=== PATIENT | female | born 1985 | race Caucasian/White ===

== ENCOUNTER → 2017-03-05 | Outpatient (CLI) | payer OTHER ==
--- NOTE | 2017-03-05 14:56 | US ---
EXAMINATION TYPE: US transvaginal DATE OF EXAM: 03/05/2017 COMPARISON: NONE CLINICAL HISTORY: Z97.5 IUD placement. Patient stated that IUD string not located on pelvic exam tovin[place] de [place] torre. TECHNIQUE: Transvaginal (TV) Date of LMP: 02/10/2017 EXAM MEASUREMENTS: Uterus: 8.8 x 5.4 x 4.6 cm Endometrial Stripe: 1.2 cm Right Ovary: 3.3 x 2.2 x 2.4 cm Left Ovary: 3.2 x 3.2 x 2.4 cm 1. Uterus: Anteverted; multiple Nabothian Cysts in CX with largest = 0.4 x 0.4 x 0.2cm 2. Endometrium: No IUD is seen in endometrium, myometrium, HOA, cervical canal or vaginal canal; end ometrial thickness is wnl for Day 24LMP 3. Right Ovary: multifollicular 4. Left Ovary: multifollicular with largest as involuting cyst = 1.7 x 1.6 x 1.5cm 5. Bilateral Adnexa: wnl 6. Posterior cul-de-sac: wnl Findings were discussed with the ordering physician by the merchandise worker on 02/25/2017. IMPRESSION: The patient's questioned malpositioned intrauterine device is not sonographically present . Pelvic radiograph could be performed to evaluate for any portion remaining within the pelvic cavity .
--- NOTE | 2017-03-05 15:47 | XR ---
EXAMINATION TYPE: XR abdomen 1V DATE OF EXAM: 03/05/2017 CLINICAL HISTORY: IUD in uncertain location. TECHNIQUE: Single supine image of the abdomen is obtained. COMPARISON: Pelvic ultrasound of the same date FINDINGS: No radiopaque intrauterine device is seen within the abdomen or pelvis. Scattered gas is s een in non-distended small bowel loops. Gas and fecal material is seen in non-distended colon. Ther e is no visceromegaly, pneumoperitoneum, or abnormal calcification appreciated. Numerous phleboliths are noted within the low pelvis. The lung bases are clear and the osseous structures are intact. IMPRESSION: 1. No radiographic evidence of intrauterine device. Intrauterine device is thought to have been expel led from the patient. 2. Nonobstructive bowel gas pattern.
== END | disposition home or self-care (01) ==
LOC: RADUSWWP 14:12
PROVIDERS: ATTEND Obstetrics & Gynecology
DX: T83.32XA Displacement of intrauterine contraceptive device, initial encounter (principal); R14.3 Flatulence
CPT/HCPCS: 74000; 76830

== ENCOUNTER → 2018-03-19 | Outpatient (CLI) | payer OTHER ==
--- NOTE | 2018-03-19 16:26 | CT ---
EXAMINATION TYPE: CT abdomen pelvis wo con DATE OF EXAM: 03/19/2018 HISTORY: abdominal pain not further specified CT DLP: 1077 mGycm. Automated Exposure Control for Dose Reduction was Utilized. TECHNIQUE: CT scan of the abdomen and pelvis is performed without oral or IV contrast. COMPARISON: NONE FINDINGS: Within the limitations of a non-contrast study, the following observations are made. LUNG BASES: No significant abnormality is appreciated. LIVER/GB: Dependent density in gallbladder could reflect small stones and/or gallbladder sludge. No s urrounding inflammatory changes seen. PANCREAS: No significant abnormality is seen. SPLEEN: No significant abnormality is seen. ADRENALS: No significant abnormality is seen. KIDNEYS: There is 7 mm calculus in lower pole calyx left kidney coronal image 60. No right-sided demetrius l calculi are seen. No hydronephrosis or obstructing ureter calculi are clearly seen bilaterally. No intraluminal calculus and bladder is present. BOWEL: No significant small or large bowel dilatation. Small bowel is slightly more prominent but not greater than 3 cm dilated in the right mid to lower abdomen. Cecum is wandering into the right upper to midabdomen. There is normal-appearing appendix extending to left of midline coronal image 30. GENITAL ORGANS: Anteverted uterus is seen. Both ovaries are seen on axial image 71 without suspicious enlargement. Some scattered pelvic phleboliths are present. LYMPH NODES: No greater than 1cm abdominal or pelvic lymph nodes are appreciated. OSSEOUS STRUCTURES: No significant abnormality is seen. OTHER: No significant additional abnormality is seen. IMPRESSION: No acute finding identified. Incidental findings as noted above.
[2018-03-19 16:30] LABS: Basophils % (A) 0 %; Eosinophils # (A) 0.1 k/uL (0-0.7); Eosinophils % (A) 1 %; HGB 12.5 gm/dL (11.4-16.0); Lymphocytes # (A) 1.3 k/uL (1.0-4.8); Lymphocytes % (A) 16 %; MCH 29.4 pg (25.0-35.0); MCHC 32.1 g/dL (31.0-37.0); MCV 91.5 fL (80.0-100.0); Mean Platelet Volume 6.9; Monocytes # (A) 0.6 k/uL (0-1.0); Monocytes % (A) 7 %; Neutrophils % (A) 73 %; Platelet Count 234 k/uL (150-450); RBC 4.26 m/uL (3.80-5.40); RDW 13.1 % (11.5-15.5); WBC 8.3 k/uL (3.8-10.6)
[2018-03-19 16:39] LABS: ALT 129 U/L (9-52); AST 103 U/L (14-36); Alkaline Phosphatase 54 U/L (38-126); Amylase 32 U/L (30-110); Anion Gap 10 mmol/L; Blood Urea Nitrogen 12 mg/dL (7-17); Calcium 8.8 mg/dL (8.4-10.2); Carbon Dioxide 25 mmol/L (22-30); Chloride 103 mmol/L (98-107); Glucose 86 mg/dL (74-99); Lipase 52 U/L (23-300); Potassium 3.8 mmol/L (3.5-5.1); Sodium 138 mmol/L (137-145); Total Bilirubin 0.3 mg/dL (0.2-1.3)
[2018-03-19 16:55] LABS: T4, Free (Free Thyroxine) 0.86 ng/dL (0.78-2.19)
[2018-03-20 04:57] LABS: Hepatitis A Antibody IgM Non-Reactive (Non-Reactive); Hepatitis B Core IgM Non-Reactive (Non-Reactive)
== END | disposition home or self-care (01) ==
LOC: RADCTMAIN 16:00
PROVIDERS: ATTEND Nurse Practitioner Adult Health
DX: R10.9 Unspecified abdominal pain (principal)
CPT/HCPCS: 74176; 80053; 80074; 82150; 83690; 84439; 84443; 85025

== ENCOUNTER → 2018-06-26 | Outpatient (CLI) | payer OTHER ==
[2018-06-26 14:44] LABS: HCT 38.6 % (34.0-46.0); HGB 12.4 gm/dL (11.4-16.0); MCH 29.4 pg (25.0-35.0); MCHC 32.2 g/dL (31.0-37.0); MCV 91.2 fL (80.0-100.0); Mean Platelet Volume 6.9; Platelet Count 294 k/uL (150-450); RBC 4.23 m/uL (3.80-5.40); RDW 13.3 % (11.5-15.5); WBC 11.2 k/uL (3.8-10.6)
--- NOTE | 2018-06-26 14:46 | US ---
EXAMINATION TYPE: Transabdominal DATE OF EXAM: 10/09/17 COMPARISON: NONE CLINICAL HISTORY: Z36 Confirm dates. EXAM PERFORMED: Transabdominal (TA) EXAM MEASUREMENTS: GESTATIONAL AGE / DATING Physician Established: Not yet established Dates by LMP: (7 weeks/4 days) EDC: 02/08/2019 Dates by First Scan: No previous this is first scan Dates by Current Scan for: (6 weeks/6 days) EDC: 02/13/2019 MATERNAL ANATOMY Uterus: 12.5 x 4.6 x 4.9 cm Right Ovary: 2.5 x 1.7 x 1.9 cm Left Ovary: 3.5 x 2.1 x 2.0 cm Post CDS / Adnexa: wnl Presence of free fluid: No Presence of corpus luteal cyst: No Presence of subchorionic bleed: No GESTATION / SURVEY CRL: 0.9 cm (6 weeks/6 days) Yolk Sac (normal less than 6mm): 4 mm Heart Rate: 144 bpm Rhythm: Normal IUP: Viable IUP Date of LMP: 05/04/2018 Beta HcG (if available): Not available at this time Single live intrauterine gestation is confirmed as gestational sac, yolk sac, and pole are pres ent. No free fluid is seen in pelvic cul-de-sac. Both ovaries are seen. No suspicious extraovarian adnexal masses are present. IMPRESSION: Single live intrauterine gestation is seen, mean crown-rump length is 0.9 cm corresponding to 6 week 6 day old fetus.
[2018-06-26 15:10] LABS: Glucose 95 mg/dL (74-99)
[2018-06-26 21:51] LABS: HIV 1 AB Non-Reactive (Non-Reactive); HIV AB P24 Non-Reactive (Non-Reactive); HIV P24 AG Non-Reactive (Non-Reactive)
== END | disposition home or self-care (01) ==
LOC: RADUSWWP 13:38
PROVIDERS: ATTEND Obstetrics & Gynecology
DX: Z34.81 Encounter for supervision of other normal pregnancy, first trimester (principal); Z3A.01 Less than 8 weeks gestation of pregnancy
CPT/HCPCS: 36415; 76801; 82565; 82947; 85027; 86762; 86780; 86850; 86900; 86901; 87340; 87390

== ENCOUNTER 2019-02-02 12:53 | Inpatient (IN) | payer OTHER ==
[2019-02-02 14:31] LABS: Basophils % (A) 0 %; Eosinophils # (A) 0.1 k/uL (0-0.7); Eosinophils % (A) 1 %; HCT 35.8 % (34.0-46.0); HGB 12.1 gm/dL (11.4-16.0); Lymphocytes # (A) 1.6 k/uL (1.0-4.8); Lymphocytes % (A) 12 %; MCH 30.6 pg (25.0-35.0); MCHC 33.7 g/dL (31.0-37.0); MCV 90.6 fL (80.0-100.0); Mean Platelet Volume 8.1; Monocytes # (A) 0.5 k/uL (0-1.0); Monocytes % (A) 4 %; Neutrophils # (A) 11.2 k/uL (1.3-7.7); Neutrophils % (A) 82 %; Platelet Count 205 k/uL (150-450); RBC 3.95 m/uL (3.80-5.40); RDW 14.4 % (11.5-15.5); WBC 13.6 k/uL (3.8-10.6)
[2019-02-02 14:36] LABS: ALT 11 U/L (9-52); AST 15 U/L (14-36); African American GFR (CKD) >90 (>60 ml/min/1.73 sqM); Blood Urea Nitrogen 13 mg/dL (7-17); LDH 312 U/L (313-618); Non-African American GFR(CKD) >90 (>60 ml/min/1.73 sqM); Uric Acid 5.8 mg/dL (3.7-7.4)
[2019-02-02 14:37] LABS: Amorphous Sediment,Urine Occasional /hpf; Appearance,Urine Turbid (Clear); Bacteria,Urine Occasional /hpf; Bilirubin,Urine Negative (Negative); Blood,Urine Large (Negative); Color,Urine Yellow; Glucose,Urine (UA) Negative (Negative); Ketones,Urine Negative (Negative); Leukocyte Esterase,Urine Large (Negative); Mucus,Urine Many /hpf; Nitrite,Urine Negative (Negative); PH, Urine 5.5 (5.0-8.0); Protein,Urine 1+ (Negative); RBC,Urine 36 /hpf (0-5); Specific Gravity,Urine 1.021 (1.001-1.035); Squamous Epithelial Cell,Urine 99 /hpf (0-4); Urobilinogen,Urine <2.0 mg/dL (<2.0); WBC,Urine 41 /hpf (0-5)
[2019-02-02] MEDS ORDERED: ROPIVACAINE 5MG/ML 20ML VIAL ONE (15:05)
[2019-02-02] MEDS ORDERED: fentaNYL (PF) 50 MCG/ML 5 ML AMP ONE (15:05)
[2019-02-02] MEDS ORDERED: SODIUM CHLORIDE 0.9% 100 ML BAG ONE (15:05)
--- NOTE | 2019-02-02 16:18 | P.HPOB ---
History of Present Illness H&P Date: 02/02/19 Chief Complaint: Intrauterine at 39 weeks: Gestational hypertension Libia is a 34-year-old at 39 weeks gestation arrives to labor and delivery with complaints of cramping. It was noted that she had elevations in her blood pressure 140s over 90s on multiple checks. Preeclamptic labs were drawn and all were normal. She does have a history of gestational hypertension with her need to be seen on at least 2 prior occasions with labs drawn for preeclampsia were all normal at that time. She and I did sit and discussed with the rest for family decision on whether not we are going to start induction this evening or if we would just started in the morning since she has no signs or symptoms of preeclampsia and again normal labs. She is decided that she would rather wait until morning since she's not delivering in the middle the night and that hopefully she can get some rest tonight. We'll keep her tonight and monitored her and use serial blood pressures through the evening slit if there is a significant change we can adjust our plans and treat blood pressure accordingly and start an induction if needed. Risks and benefits were discussed with the patient in detail and all questions were answered for her prior to admission. We'll notify Dr. Lebron of her admission today should he can do the induction in the morning. She is currently dilated to once and 60% effaced and -2 station and there is a category 1 tracing noted. course has been, complicated by previous gestational hypertension as well as kidney stones which were actually diagnosed prepregnancy but treatment had been deferred until after delivery. She also relates that she does have a yeast infection starting, once delivered we'll be able to treat aggressively with either Terazol or Diflucan. Otherwise she has no other medical problems or concerns that she relates. Past surgical history none: ALLERGIES none: Social history is unremarkable. Family history is nonicteric. Assessment intrauterine at term. Plan induction in a.m. Past Medical History Past Medical History: No Reported History History of Any Multi-Drug Resistant Organisms: None Reported Past Surgical History: No Surgical Hx Reported Past Anesthesia/Blood Transfusion Reactions: No Reported Reaction Smoking Status: Never smoker - Past Family History Mother Family Medical History: Hypertension Father Family Medical History: Hypertension Medications and Allergies Home Medications Medication Instructions Recorded Confirmed Type Yld-Ahnw-Lrsju Acid 1 tab PO DAILY 07/14/14 02/02/19 History [-U Capsule] Allergies Allergy/AdvReac Type Severity Reaction Status Date / Time No Known Allergies Allergy Verified 07/14/14 01:58 Exam Osteopathic Statement: *. No significant issues noted on an osteopathic struc tural exam other than those noted in the History and Physical/Consult. Vital Signs Temp Pulse Resp BP Pulse Ox 02/02/19 13:32 98.1 F 92 18 145/95 98 Intake and Output 02/02/19 02/02/19 02/02/19 06:59 14:59 22:59 Other: Weight 111.316 kg - OBG Physical Exam Breast: both: normal (no masses) Abdomen: bowel sounds normal, no diffuse tenderness, no bruit present, no guarding noted, no hepatomegaly, no splenomegaly, no mass Vulva: both: normal Vagina: normal moisture, no discharge Cervix: no lesion, no discharge Uterus: normal size, normal contour Adnexa: both: normal Anus/Rectum: normal perianal skin, no rectal mass, no hemorrhoids, heme negative Results Result Diagrams: 02/02/19 14:16 02/02/19 14:16 Abnormal Lab Results - Last 24 Hours (Table) 02/02/19 02/02/19 02/02/19 Range/Units 14:05 14:05 14:16 WBC (3.8-10.6) k/uL Neutrophils # (1.3-7.7) k/uL Lactate Dehydrogenase 312 L (313-618) U/L Urine Appearance Turbid H (Clear) Urine Protein 1+ H (Negative) Urine Blood Large H (Negative) Ur Leukocyte Esterase Large H (Negative) Urine RBC 36 H (0-5) /hpf Urine WBC 41 H (0-5) /hpf Ur Squamous Epith Cells 99 H (0-4) /hpf Amorphous Sediment Occasional H (None) /hpf Urine Bacteria Occasional H (None) /hpf Urine Mucus Many H (None) /hpf U Random Total Protein 24 H (<12) mg/dL 02/02/19 Range/Units 14:16 WBC 13.6 H (3.8-10.6) k/uL Neutrophils # 11.2 H (1.3-7.7) k/uL Lactate Dehydrogenase (313-618) U/L Urine Appearance (Clear) Urine Protein (Negative) Urine Blood (Negative) Ur Leukocyte Esterase (Negative) Urine RBC (0-5) /hpf Urine WBC (0-5) /hpf Ur Squamous Epith Cells (0-4) /hpf Amorphous Sediment (None) /hpf Urine Bacteria (None) /hpf Urine Mucus (None) /hpf U Random Total Protein (<12) mg/dL
[2019-02-02 16:29] VITALS: BMI 38.3
[2019-02-02] MEDS ORDERED: ACETAMINOPHEN TAB 325 MG TAB PO PRN (19:02)
[2019-02-03] MEDS ORDERED: CARBOPROST TROMETHAMINE 250 MCG/ML 1 ML AMP IM PRN (05:33)
[2019-02-03] MEDS ORDERED: TERBUTALINE 1 MG/ML VIAL SQ PRN (05:33)
[2019-02-03] MEDS ORDERED: LIDOCAINE 0.5% (PF) 5 MG/ML (50 ML SDV) SQ PRN (05:33)
[2019-02-03] MEDS ORDERED: OXYTOCIN 10 UNIT/ML 1 ML VIAL IM PRN (05:33)
[2019-02-03] MEDS ORDERED: METHYLERGONOVINE 0.2 MG/ML 1 ML AMP IM PRN (05:33)
[2019-02-03] MEDS ORDERED: OXYTOCIN 30 UNITS/500 ML NS 30 UNIT in SALINE 1 500ML.BAG IV SCH (05:45)
[2019-02-03] MEDS: LACTATED RINGERS 1,000 ML IV SCH ×3 (05:51→22:24)
[2019-02-03 06:03] LABS: Basophils % (A) 0 %; Eosinophils # (A) 0.3 k/uL (0-0.7); Eosinophils % (A) 2 %; HCT 36.7 % (34.0-46.0); HGB 12.5 gm/dL (11.4-16.0); Lymphocytes # (A) 2.6 k/uL (1.0-4.8); Lymphocytes % (A) 20 %; MCH 30.8 pg (25.0-35.0); MCHC 34.1 g/dL (31.0-37.0); MCV 90.5 fL (80.0-100.0); Mean Platelet Volume 8.6; Monocytes # (A) 0.4 k/uL (0-1.0); Monocytes % (A) 3 %; Neutrophils # (A) 9.4 k/uL (1.3-7.7); Neutrophils % (A) 73 %; Platelet Count 216 k/uL (150-450); RBC 4.05 m/uL (3.80-5.40); RDW 14.4 % (11.5-15.5); WBC 12.9 k/uL (3.8-10.6)
[2019-02-03] MEDS: BUTORPHANOL 1 MG/ML 1 ML VIAL IV PRN ×2 (10:16→12:50)
--- NOTE | 2019-02-03 21:51 | P.PROBDLV ---
Vaginal Delivery Note - . Vaginal Delivery Note: 33-year-old presented at 39 weeks and 1 day for induction of labor due to gestational hypertension. Her cervix was 1 cm dilated, 50% effaced, and -3 station. She was admitted by Dr. Don and induction was started by Dr. Harrison. Amniotomy was performed at 5:56 AM clear fluid noted. Pitocin was also started. When she was uncomfortable she did get an epidural. Her cervix was completely dilated around 2130. She pushed, delivered a viable female over intact perineum under epidural anesthesia at 2134. Head delivered OA, anterior shoulder delivered gentle downward guidance followed by posterior shoulder and rest of body. Nose and mouth bulb suctioned, cord clamped and cut, infant placed on mother's abdomen. Apgars 8, 9, weight 8 lbs. 8 oz. Placenta delivered spontaneous, intact with three-vessel cord. Vagina, cervix, and perineum were inspected. First-degree midline laceration was repaired with 3-0 Vicryl. The left labial Laceration was repaired with 3-0 Vicryl. Estimated blood loss was 200 ml. Mother and baby in stable condition.
[2019-02-03] MEDS ORDERED: OXYTOCIN 20 UNITS/1000 ML NS 1,000 ML IV SCH (21:57)
[2019-02-03] MEDS ORDERED: ZOLPIDEM 5 MG TAB PO PRN (21:57)
[2019-02-03] MEDS ORDERED: BISACODYL 10 MG SUPP RECTAL PRN (21:57)
[2019-02-03] MEDS ORDERED: HYDROCORTISONE 2.5% RECTAL CREAM 30 GM TUBE RECTAL PRN (21:57)
[2019-02-03] MEDS ORDERED: SIMETHICONE 80 MG CHEWABLE PO PRN (21:57)
[2019-02-03] MEDS ORDERED: diphenhydrAMINE 50 MG/ML 1 ML VIAL IVP PRN (21:57)
[2019-02-03] MEDS ORDERED: ACETAMINOPHEN TAB 325 MG TAB PO PRN (21:57)
[2019-02-03] MEDS ORDERED: LANOLIN CREAM 5 GM TUBE TOPICAL PRN (21:57)
[2019-02-03] MEDS ORDERED: WITCH HAZEL 1 EACH MED..PAD TOPICAL PRN (21:57)
[2019-02-03] MEDS ORDERED: diphenhydrAMINE 25 MG CAP PO PRN (21:57)
[2019-02-03] MEDS ORDERED: BENZOCAINE/MENTHOL SPRAY 1 GM/SPRAY AEROSOL TOPICAL PRN (21:57)
[2019-02-03] MEDS: SENNOSIDES-DOCUSATE SODIUM 1 EACH TAB PO SCH (22:23)
[2019-02-04] MEDS: IBUPROFEN 600 MG TAB PO PRN ×3 (01:55→21:52)
[2019-02-04 04:15] VITALS: RESP 16
--- NOTE | 2019-02-04 06:10 | P.PNOBGVD ---
Subjective - Subjective Patient reports: Reports appetite normal, Reports voiding normally, Reports pain well controlled, Reports ambulating normally : doing well Objective - Latest Vital Signs Latest vital signs: Vital Signs Temp Pulse Resp BP Pulse Ox 02/04/19 04:00 97.4 F L 90 16 113/70 97 02/03/19 23:45 98.4 F 96 15 132/73 02/03/19 23:15 98.5 F 96 16 127/69 02/03/19 22:45 98.3 F 97 16 126/74 02/03/19 22:30 98.7 F 95 16 122/70 02/03/19 22:15 93 16 126/72 02/03/19 22:00 97.8 F 99 16 126/68 02/03/19 21:45 108 H 16 142/71 Intake and Output 02/03/19 02/03/19 02/04/19 14:59 22:59 06:59 Output Total 450 Balance -450 Output: Urine 450 Other: # Voids 1 1 1 - Exam Lungs: bilateral: normal Chest: Normal S1, Normal S2 Extremities: Present: normal Abdomen: Present: normal appearance, soft Uterus: Present: normal, firm Assessment and Plan Assessment: day #1. Patient is resting without complaints. Blood pressures are fine. Uterus is firm nontender and she is having normal lochia. My impression this is a normal course. Plan is to continue routine care discharge home most likely tomorrow. (1) Normal vaginal delivery Current Visit: Yes Status: Acute Code(s): O80 - ENCOUNTER FOR FULL-TERM UNCOMPLICATED DELIVERY SNOMED Code(s): 47383360
[2019-02-04] MEDS: SENNOSIDES-DOCUSATE SODIUM 1 EACH TAB PO SCH ×2 (07:55→19:23)
[2019-02-05 00:43] VITALS: TEMP 98
--- NOTE | 2019-02-05 06:06 | P.PNOBGVD ---
Subjective - Subjective Patient reports: Reports appetite normal, Reports voiding normally, Reports pain well controlled, Reports ambulating normally : doing well Objective - Latest Vital Signs Latest vital signs: Vital Signs Temp Pulse Resp BP 02/05/19 00:00 98.0 F 84 16 124/84 02/04/19 16:00 97.6 F 88 16 103/67 02/04/19 08:00 97.9 F 79 16 123/86 Intake and Output 02/04/19 02/04/19 02/05/19 14:59 22:59 06:59 Intake Total 100 Balance 100 Intake: Oral 100 Other: # Voids 1 1 1 - Exam Lungs: bilateral: normal Chest: Normal S1, Normal S2 Extremities: Present: normal Abdomen: Present: normal appearance, soft Uterus: Present: normal, firm Assessment and Plan Assessment: day #2. Patient is resting without complaints. Vital signs are stable she's afebrile. Uterus is firm nontender she's having normal lochia. Impression is a normal course. Plan is to continue routine care discharge home later today. (1) Normal vaginal delivery Current Visit: Yes Status: Acute Code(s): O80 - ENCOUNTER FOR FULL-TERM UNCOMPLICATED DELIVERY SNOMED Code(s): 02459437
--- NOTE | 2019-02-05 06:13 | P.DS ---
Providers Date of admission: 02/02/19 16:10 Expected date of discharge: 02/05/19 Attending physician: Misael Lebron Primary care physician: Stated None - Discharge Diagnosis(es) (1) Normal vaginal delivery Current Visit: Yes Status: Acute Hospital Course: Please see dictated H&P for intimate details of this patient's admission. Brief summary is a pleasant 33-year-old 3 para 1 female estimated gestational age 39 weeks who presented to labor and delivery and was found to have gestational hypertension. Patient's subsequent have induction of labor and normal vaginal delivery viable female . Please see dictated delivery note. On day #2 patient's felt be stable for discharge home follow up with me in 6 weeks. Procedures: Induction of labor and normal vaginal delivery Patient Condition at Discharge: Good Plan - Discharge Summary New Discharge Prescriptions: New Ibuprofen [Motrin] 600 mg PO Q6HR PRN #40 tab PRN Reason: Mild Pain Or Fever >= 100.5 No Action Gsb-Iuof-Iebsl Acid [-U Capsule] 1 tab PO DAILY Discharge Medication List Jyp-Dvls-Qmkwz Acid [-U Capsule] 1 tab PO DAILY 07/14/14 [History] Ibuprofen [Motrin] 600 mg PO Q6HR PRN #40 tab 02/05/19 [Rx] Follow up Appointment(s)/Referral(s): Misael Lebron MD [STAFF PHYSICIAN] - 03/18/19 10:30 am Patient Instructions/Handouts: Vaginal Delivery (DC) Activity/Diet/Wound Care/Special Instructions: No intercourse or anything per vagina for 6 weeks. Please call if any fever, chills, excessive vaginal bleeding, and/or abdominal pain. Discharge Disposition: HOME SELF-CARE
[2019-02-05 08:54] VITALS: BP 124/74; PULSE 89
[2019-02-05] MEDS: SENNOSIDES-DOCUSATE SODIUM 1 EACH TAB PO SCH (08:54)
[2019-02-05] MEDS: IBUPROFEN 600 MG TAB PO PRN (08:55)
== END 2019-02-05 11:00 | disposition home or self-care (01) | DRG 807 ==
LOC: FBPOP 12:53 → 4FBP 16:10 → UNDODISIN 02-04 11:03
PROVIDERS: ADMIT Obstetrics & Gynecology; ATTEND Obstetrics & Gynecology
PROC: 00HU33Z Insertion of Infusion Device into Spinal Canal, Percutaneous Approach (ICD-10-PCS; principal; 2019-02-02)
PROC: 10E0XZZ Delivery of Products of Conception, External Approach (ICD-10-PCS; principal; 2019-02-02)
PROC: 3E033VJ Introduction of Other Hormone into Peripheral Vein, Percutaneous Approach (ICD-10-PCS; principal; 2019-02-02)
PROC: 10907ZC Drainage of Amniotic Fluid, Therapeutic from Products of Conception, Via Natural or Artificial Opening (ICD-10-PCS; principal; 2019-02-02)
PROC: 3E0R3NZ Introduction of Analgesics, Hypnotics, Sedatives into Spinal Canal, Percutaneous Approach (ICD-10-PCS; principal; 2019-02-02)
PROC: 0HQ9XZZ Repair Perineum Skin, External Approach (ICD-10-PCS; principal; 2019-02-02)
DX: O13.4 Gestational [pregnancy-induced] hypertension without significant proteinuria, complicating childbirth (principal); Z37.0 Single live birth; O70.0 First degree perineal laceration during delivery; Z3A.39 39 weeks gestation of pregnancy; Z82.49 Family history of ischemic heart disease and other diseases of the circulatory system; Z87.442 Personal history of urinary calculi
CPT/HCPCS: 59025; 81001; 82565; 82570; 83615; 84156; 84450; 84460; 84520; 84550; 85025; 86850; 86900; 86901

== ENCOUNTER 2019-02-09 18:32 | Inpatient (IN) | payer OTHER ==
[2019-02-09] MEDS ORDERED: SODIUM CHLORIDE 0.9% 1,000 ML IV STA ×3 (19:23→23:21)
[2019-02-09] MEDS ORDERED: MORPHINE SULFATE 2 MG/ML SYRINGE IVP STA (19:23)
[2019-02-09] MEDS ORDERED: ONDANSETRON 4 MG/2 ML VIAL IVP STA ×2 (19:23→21:29)
[2019-02-09 19:32] LABS: Basophils % (A) 0 %; Eosinophils # (A) 0.2 k/uL (0-0.7); Eosinophils % (A) 1 %; HGB 12.8 gm/dL (11.4-16.0); Lymphocytes # (A) 1.7 k/uL (1.0-4.8); Lymphocytes % (A) 10 %; MCH 29.2 pg (25.0-35.0); MCHC 32.8 g/dL (31.0-37.0); MCV 89.1 fL (80.0-100.0); Mean Platelet Volume 7.2; Monocytes # (A) 0.6 k/uL (0-1.0); Monocytes % (A) 4 %; Neutrophils # (A) 13.9 k/uL (1.3-7.7); Neutrophils % (A) 84 %; Platelet Count 354 k/uL (150-450); RBC 4.38 m/uL (3.80-5.40); RDW 12.9 % (11.5-15.5); WBC 16.6 k/uL (3.8-10.6)
[2019-02-09 19:36] LABS: Appearance,Urine Turbid (Clear); Bacteria,Urine Occasional /hpf; Bilirubin,Urine Negative (Negative); Blood,Urine Large (Negative); Color,Urine Dark Red; Glucose,Urine (UA) Negative (Negative); Ketones,Urine 2+ (Negative); Leukocyte Esterase,Urine Large (Negative); Nitrite,Urine Negative (Negative); PH, Urine 8.5 (5.0-8.0); Protein,Urine 3+ (Negative); RBC,Urine >182 /hpf (0-5); Urobilinogen,Urine <2.0 mg/dL (<2.0); WBC,Urine >182 /hpf (0-5)
[2019-02-09 19:47] LABS: ALT 32 U/L (9-52); AST 28 U/L (14-36); African American GFR (CKD) >90 (>60 ml/min/1.73 sqM); Albumin 3.8 g/dL (3.5-5.0); Alkaline Phosphatase 108 U/L (38-126); Amylase 47 U/L (30-110); Anion Gap 13 mmol/L; Blood Urea Nitrogen 17 mg/dL (7-17); Calcium 9.5 mg/dL (8.4-10.2); Carbon Dioxide 21 mmol/L (22-30); Chloride 106 mmol/L (98-107); Glucose 90 mg/dL (74-99); Potassium 3.8 mmol/L (3.5-5.1); Sodium 140 mmol/L (137-145); Total Bilirubin 0.3 mg/dL (0.2-1.3); Total Protein 6.9 g/dL (6.3-8.2)
[2019-02-09] MEDS ORDERED: MORPHINE SULFATE 4 MG/ML SYRINGE IVP STA (21:18)
--- NOTE | 2019-02-09 21:42 | CT ---
EXAMINATION TYPE: CT abdomen pelvis wo con DATE OF EXAM: 02/09/2019 COMPARISON: 03/19/2018. HISTORY: Left flank pain CT DLP: 880.6 mGycm Automated exposure control for dose reduction was used. TECHNIQUE: Helical acquisition of images was performed from the lung bases through the pelvis. FINDINGS: LUNG BASES: Well aerated lung bases. LIVER/GB: Very low density hepatic cyst and subcentimeter. The liver is hypoattenuated throughout alt ayden does not yet meet criteria for hepatic steatosis. No cholelithiasis. PANCREAS: Unremarkable unenhanced morphology. SPLEEN: No splenomegaly. ADRENALS: No nodularity or thickening. KIDNEYS: There is moderate to severe left hydroureteronephrosis secondary to a proximal left ureteral 8 mm obstructing calculus. No right-sided hydronephrosis or nephrolithiasis. No additional calculi s een on the left. There is fat stranding surrounding the renal sinus. FREE AIR: No free air is visualized REPRODUCTIVE ORGANS: Uterus is enlarged measuring up to 19 cm in longitudinal dimension and heterogen ous with possible uterine leiomyomas. Right adnexal cystic structure may represent a dominant follicl e or cyst. URINARY BLADDER: No significant abnormality is seen. OSSEOUS STRUCTURES: No acute osseous pathology is seen. BOWEL: No dilated large or small bowel. Cecum is displaced slightly towards midline and appendix is air-filled and within normal limits. OTHER: Abdominal aorta appears of normal course and caliber. IMPRESSION: 1. MODERATE TO SEVERE LEFT HYDROURETERONEPHROSIS SECONDARY TO A LEFT PROXIMAL OBSTRUCTING 8 MM URETER AL CALCULUS. 2. THE UTERUS IS MARKEDLY ENLARGED MEASURING UP TO 19 CM IN LONGITUDINAL DIMENSION. UTERUS IS ALSO HE TEROGENOUS. UNDERLYING LEIOMYOMAS POSSIBLE. CORRELATION WITH PELVIC ULTRASOUND IS RECOMMENDED. THIS I S A NEW FINDING FROM THE PRIOR OF 03/19/2018.
[2019-02-09] MEDS ORDERED: cefTRIAXone 1,000 MG VIAL (IM USE) IM STA (22:23)
[2019-02-09] MEDS ORDERED: NALOXONE 0.4 MG/ML 1 ML VIAL IV PRN (22:25)
[2019-02-09] MEDS ORDERED: MORPHINE SULFATE 4 MG/ML SYRINGE IVP PRN (22:28)
[2019-02-09] MEDS: ONDANSETRON 4 MG/2 ML VIAL IVP SCH (22:31)
[2019-02-09] MEDS: SODIUM CHLORIDE 0.9% 1,000 ML IV SCH (22:52)
--- NOTE | 2019-02-09 22:56 | ED ---
Abdominal Pain HPI - General Chief Complaint: Abdominal Pain Stated Complaint: Abd pain Time Seen by Provider: 02/09/19 18:41 Source: patient Mode of arrival: wheelchair Limitations: no limitations - History of Present Illness Initial Comments: Patient is a 33-year-old female presenting to the emergency department with a chief complaint of abdominal pain. Patient reports a sudden onset of left flank pain that started this morning. Patient reports the pain comes and goes. Patient reports the pain is exacerbated when attempting to move around and alleviated at rest. Although she reports a difficult time finding a comfortable position. Patient reports she gave on Sunday. Patient reports prior to her she was diagnosed with nephrolithiasis where she was able to pass a few stones but a large one remained for which she was supposed to see a urologist. Patient reports that she found out that she was and did not make it to the urology appointment. Patient did not have any issues until today. Patient also reports a sudden onset of nausea with multiple episodes of vomiting but no diarrhea. Patient denies fevers, night sweats, chills. Patient reports vaginal bleeding but states that is intermittent spotting. Patient denies increased urgency, frequency or dysuria. Patient denies any changes in bowel habits. - Related Data Home Medications Medication Instructions Recorded Confirmed Zmt-Ssth-Cemqc Acid 1 tab PO DAILY 07/14/14 02/09/19 [-U Capsule] Previous Rx's Medication Instructions Recorded Ibuprofen [Motrin] 600 mg PO Q6HR PRN #40 tab 02/05/19 Allergies Allergy/AdvReac Type Severity Reaction Status Date / Time No Known Allergies Allergy Verified 02/09/19 22:28 Review of Systems ROS Statement: Those systems with pertinent positive or pertinent negative responses have been documented in the HPI. ROS Other: All systems not noted in ROS Statement are negative. Past Medical History Past Medical History: No Reported History, Hypertension Additional Past Medical History / Comment(s): Kidney stones w , hematuria, staph infection 2 cm area on rt lower abd tx with keflex 500 mg po qid x 7 days. (on day 5 now) History of Any Multi-Drug Resistant Organisms: None Reported Past Surgical History: No Surgical Hx Reported Past Anesthesia/Blood Transfusion Reactions: No Reported Reaction Past Psychological History: No Psychological Hx Reported Smoking Status: Never smoker Past Alcohol Use History: None Reported Past Drug Use History: None Reported - Past Family History Mother Family Medical History: Hypertension Father Family Medical History: Hypertension General Exam Limitations: no limitations General appearance: alert, in no apparent distress Head exam: Present: atraumatic, normocephalic, normal inspection Eye exam: Present: normal appearance, PERRL, EOMI Pupils: Present: normal accommodation ENT exam: Present: normal exam, mucous membranes moist, TM's normal bilaterally, normal external ear exam Neck exam: Present: normal inspection, full ROM Respiratory exam: Present: normal lung sounds bilaterally Cardiovascular Exam: Present: regular rate, normal rhythm, normal heart sounds GI/Abdominal exam: Present: soft, tenderness (Left flank), normal bowel sounds, other (Negative Zee sign, negative McBurney point tenderness, negative Rovsing negative obturator sign negative psoas. No periumbilical ecchymosis). Absent: guarding, rebound Extremities exam: Present: normal inspection, full ROM Back exam: Present: normal inspection, full ROM Neurological exam: Present: alert, oriented X3 Psychiatric exam: Present: normal affect, normal mood Skin exam: Present: warm, intact, normal color Course Vital Signs 02/09/19 02/09/19 02/09/19 18:35 20:42 22:55 Temperature 99.2 F 100.3 F H 98.6 F Pulse Rate 61 54 L 58 L Respiratory 16 18 20 Rate Blood Pressure 153/88 153/81 151/90 O2 Sat by Pulse 99 99 100 Oximetry Medical Decision Making - Medical Decision Making Patient is a 33-year-old female presents emergency Department with a chief complaint of abdominal pain. CBC is indicative of leukocytosis. UA showed elevated white blood cell and red blood cell count. CT showing a left-sided hydronephrosis with an obstructing 8 mm stone in the ureter. Correlating imaging to the laboratory result I suspect the patient to have an infected kidney stone. Patient will be admitted for further management. Patient was given Rocephin, fluids, Zofran and morphine. Case discussed with Dr. Bermudez. The admitting physician is Dr. Lal. Urology consult. - Lab Data Result diagrams: 02/09/19 18:54 02/09/19 18:54 Lab Results 02/09/19 02/09/19 02/09/19 Range/Units 18:54 18:54 18:54 WBC 16.6 H (3.8-10.6) k/uL RBC 4.38 (3.80-5.40) m/uL Hgb 12.8 (11.4-16.0) gm/dL Hct 39.0 (34.0-46.0) % MCV 89.1 (80.0-100.0) fL MCH 29.2 (25.0-35.0) pg MCHC 32.8 (31.0-37.0) g/dL RDW 12.9 (11.5-15.5) % Plt Count 354 (150-450) k/uL Neutrophils % 84 % Lymphocytes % 10 % Monocytes % 4 % Eosinophils % 1 % Basophils % 0 % Neutrophils # 13.9 H (1.3-7.7) k/uL Lymphocytes # 1.7 (1.0-4.8) k/uL Monocytes # 0.6 (0-1.0) k/uL Eosinophils # 0.2 (0-0.7) k/uL Basophils # 0.0 (0-0.2) k/uL Sodium 140 (137-145) mmol/L Potassium 3.8 (3.5-5.1) mmol/L Chloride 106 (98-107) mmol/L Carbon Dioxide 21 L (22-30) mmol/L Anion Gap 13 mmol/L BUN 17 (7-17) mg/dL Creatinine 0.90 (0.52-1.04) mg/dL Est GFR (CKD-EPI)AfAm >90 (>60 ml/min/1.73 sqM) Est GFR (CKD-EPI)NonAf 85 (>60 ml/min/1.73 sqM) Glucose 90 (74-99) mg/dL Plasma Lactic Acid Prashanth (0.7-2.0) mmol/L Calcium 9.5 (8.4-10.2) mg/dL Total Bilirubin 0.3 (0.2-1.3) mg/dL AST 28 (14-36) U/L ALT 32 (9-52) U/L Alkaline Phosphatase 108 (38-126) U/L Total Protein 6.9 (6.3-8.2) g/dL Albumin 3.8 (3.5-5.0) g/dL Amylase 47 (30-110) U/L Lipase 80 (23-300) U/L Urine Color Dark Red Urine Appearance Turbid H (Clear) Urine pH 8.5 H (5.0-8.0) Ur Specific [place] 1.020 (1.001-1.035) Urine Protein 3+ H (Negative) Urine Glucose (UA) Negative (Negative) Urine Ketones 2+ H (Negative) Urine Blood Large H (Negative) Urine Nitrite Negative (Negative) Urine Bilirubin Negative (Negative) Urine Urobilinogen <2.0 (<2.0) mg/dL Ur Leukocyte Esterase Large H (Negative) Urine RBC >182 H (0-5) /hpf Urine WBC >182 H (0-5) /hpf Urine WBC Clumps Many H (None) /hpf Urine Bacteria Occasional H (None) /hpf 02/09/19 Range/Units 21:00 WBC (3.8-10.6) k/uL RBC (3.80-5.40) m/uL Hgb (11.4-16.0) gm/dL Hct (34.0-46.0) % MCV (80.0-100.0) fL MCH (25.0-35.0) pg MCHC (31.0-37.0) g/dL RDW (11.5-15.5) % Plt Count (150-450) k/uL Neutrophils % % Lymphocytes % % Monocytes % % Eosinophils % % Basophils % % Neutrophils # (1.3-7.7) k/uL Lymphocytes # (1.0-4.8) k/uL Monocytes # (0-1.0) k/uL Eosinophils # (0-0.7) k/uL Basophils # (0-0.2) k/uL Sodium (137-145) mmol/L Potassium (3.5-5.1) mmol/L Chloride (98-107) mmol/L Carbon Dioxide (22-30) mmol/L Anion Gap mmol/L BUN (7-17) mg/dL Creatinine (0.52-1.04) mg/dL Est GFR (CKD-EPI)AfAm (>60 ml/min/1.73 sqM) Est GFR (CKD-EPI)NonAf (>60 ml/min/1.73 sqM) Glucose (74-99) mg/dL Plasma Lactic Acid Prashanth 1.7 (0.7-2.0) mmol/L Calcium (8.4-10.2) mg/dL Total Bilirubin (0.2-1.3) mg/dL AST (14-36) U/L ALT (9-52) U/L Alkaline Phosphatase (38-126) U/L Total Protein (6.3-8.2) g/dL Albumin (3.5-5.0) g/dL Amylase (30-110) U/L Lipase (23-300) U/L Urine Color Urine Appearance (Clear) Urine pH (5.0-8.0) Ur Specific [place] (1.001-1.035) Urine Protein (Negative) Urine Glucose (UA) (Negative) Urine Ketones (Negative) Urine Blood (Negative) Urine Nitrite (Negative) Urine Bilirubin (Negative) Urine Urobilinogen (<2.0) mg/dL Ur Leukocyte Esterase (Negative) Urine RBC (0-5) /hpf Urine WBC (0-5) /hpf Urine WBC Clumps (None) /hpf Urine Bacteria (None) /hpf Disposition Clinical Impression: Nephrolithiasis Disposition: ADMITTED IP TO THIS [facility] Condition: Stable Instructions (If sedation given, give patient instructions): Lithotripsy (DC) Additional Instructions: Patient will be admitted Is patient prescribed a controlled substance at d/c from ED?: No Referrals: Ismael Hook MD [Primary Care Provider] - 1-2 days Time of Disposition: 23:07
[2019-02-10 00:16] LABS: INR 0.9 (<1.2); Partial Thromboplastin Time 26.4 sec (22.0-30.0); Prothrombin Time 9.5 sec (9.0-12.0)
[2019-02-10 00:26] LABS: Magnesium 2.1 mg/dL (1.6-2.3); Phosphorus 2.9 mg/dL (2.5-4.5)
[2019-02-10 00:52] VITALS: BMI 36.9
[2019-02-10] MEDS: ONDANSETRON 4 MG/2 ML VIAL IVP SCH ×3 (06:26→17:50)
--- NOTE | 2019-02-10 06:33 | P.HPOB ---
History of Present Illness H&P Date: 02/10/19 Chief Complaint: Left sided flank pain This patient is a pleasant 33-year-old multigravida female status post vaginal delivery uncomplicated 7 days ago. Patient is known history of renal calculi. She's had intermittent microscopic hematuria throughout the but no significant discomfort. She had had this stone prior to the and was scheduled to see urologist however became therefore this was put aside until after delivery of her baby. Patient had a normal vaginal delivery 7 days ago. She did well and states that last evening she developed a sudden left sided neck pain. CAT scan shows a 8 mm obstructing calculi in the left. Uterus was enlarged on the CAT scan which is consistent with recent delivery. Review of Systems Musculoskeletal: Reports low back pain Past Medical History Past Medical History: Supraventricular Tachycardia (SVT) Additional Past Medical History / Comment(s): Kidney stones w History of Any Multi-Drug Resistant Organisms: None Reported Past Surgical History: No Surgical Hx Reported Past Anesthesia/Blood Transfusion Reactions: No Reported Reaction Past Psychological History: No Psychological Hx Reported Smoking Status: Former smoker Past Alcohol Use History: None Reported Past Drug Use History: None Reported - Past Family History Mother Family Medical History: Hypertension Father Family Medical History: Hypertension Medications and Allergies Home Medications Medication Instructions Recorded Confirmed Type Xra-Sdhs-Sdnjj Acid 1 tab PO DAILY 07/14/14 02/09/19 History [-U Capsule] Ibuprofen [Motrin] 600 mg PO Q6HR PRN #40 tab 02/05/19 02/09/19 Rx Allergies Allergy/AdvReac Type Severity Reaction Status Date / Time No Known Allergies Allergy Verified 02/09/19 22:28 Exam Vital Signs Temp Pulse Pulse Resp BP BP Pulse Ox 02/10/19 06:15 55 L 95 02/10/19 03:50 97.6 F 45 L 16 139/83 95 02/10/19 00:55 45 L 02/10/19 00:41 98.4 F 47 L 16 160/89 97 02/09/19 22:55 98.6 F 58 L 20 151/90 100 02/09/19 20:42 100.3 F H 54 L 18 153/81 99 02/09/19 18:35 99.2 F 61 16 153/88 99 Intake and Output 02/09/19 02/09/19 02/10/19 14:59 22:59 06:59 Other: Voiding Method Toilet Weight 104.326 kg Results Result Diagrams: 02/09/19 18:54 02/09/19 18:54 Abnormal Lab Results - Last 24 Hours (Table) 02/09/19 02/09/19 02/09/19 Range/Units 18:54 18:54 18:54 WBC 16.6 H (3.8-10.6) k/uL Neutrophils # 13.9 H (1.3-7.7) k/uL Carbon Dioxide 21 L (22-30) mmol/L Urine Appearance Turbid H (Clear) Urine pH 8.5 H (5.0-8.0) Urine Protein 3+ H (Negative) Urine Ketones 2+ H (Negative) Urine Blood Large H (Negative) Ur Leukocyte Esterase Large H (Negative) Urine RBC >182 H (0-5) /hpf Urine WBC >182 H (0-5) /hpf Urine WBC Clumps Many H (None) /hpf Urine Bacteria Occasional H (None) /hpf Microbiology - Last 24 Hours (Table) 02/09/19 18:54 Urine Culture - Preliminary Urine,Voided Assessment and Plan Assessment: This is a pleasant 33-year-old female 7 days status post vaginal delivery now with left kidney stone. 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 My recommendations are a urology consultation. She already has a visit scheduled with me in the future. (1) Nephrolithiasis Current Visit: Yes Status: Acute Code(s): N20.0 - CALCULUS OF KIDNEY SNOMED Code(s): 74473552
--- NOTE | 2019-02-10 08:29 | P.GSCN ---
History of Present Illness Consult date: 02/10/19 Reason for Consult: Left ureteral calculus Requesting physician: Bari Lal History of present illness: The patient is a 33-year-old white female, recently , status post vaginal delivery 7 days ago. She had a known kidney stone, which was identified but not treated prior to . Yesterday, she experienced acute onset of left flank pain, associated with fever, chills, and intractable hyperemesis. She presented to the emergency room. Urinalysis is suggestive of infection, and a computed tomography scan showed evidence of left hydronephrosis due to an 8 mm left proximal ureteral calculus. Review of Systems - Constitutional Reports chills, Reports fever - Gastrointestinal Reports nausea, Reports vomiting - Genitourinary Genitourinary: Reports flank pain, Reports kidney stones, Denies dysuria Past Medical History Past Medical History: Supraventricular Tachycardia (SVT) Additional Past Medical History / Comment(s): Kidney stones w History of Any Multi-Drug Resistant Organisms: None Reported Past Surgical History: No Surgical Hx Reported Past Anesthesia/Blood Transfusion Reactions: No Reported Reaction Past Psychological History: No Psychological Hx Reported Smoking Status: Former smoker Past Alcohol Use History: None Reported Past Drug Use History: None Reported - Past Family History Mother Family Medical History: Hypertension Father Family Medical History: Hypertension Medications and Allergies Home Medications Medication Instructions Recorded Confirmed Type Gjh-Ngow-Hkyou Acid 1 tab PO DAILY 07/14/14 02/09/19 History [-U Capsule] Ibuprofen [Motrin] 600 mg PO Q6HR PRN #40 tab 02/05/19 02/09/19 Rx Allergies Allergy/AdvReac Type Severity Reaction Status Date / Time No Known Allergies Allergy Verified 02/09/19 22:28 Surgical - Exam Vital Signs Temp Pulse Resp BP Pulse Ox 99.2 F 61 16 153/88 99 02/09/19 18:35 02/09/19 18:35 02/09/19 18:35 02/09/19 18:35 02/09/19 18:35 - General well developed, well nourished, no distress - Respiratory normal respiratory effort - Abdomen Abdomen: soft, non tender, no guarding, no rigid, no rebound - Psychiatric oriented to time, oriented to person, oriented to place, speech is normal, memory intact Results - Labs 02/09/19 18:54 02/09/19 18:54 Abnormal Lab Results - Last 24 Hours (Table) 02/09/19 02/09/19 02/09/19 Range/Units 18:54 18:54 18:54 WBC 16.6 H (3.8-10.6) k/uL Neutrophils # 13.9 H (1.3-7.7) k/uL Carbon Dioxide 21 L (22-30) mmol/L Urine Appearance Turbid H (Clear) Urine pH 8.5 H (5.0-8.0) Urine Protein 3+ H (Negative) Urine Ketones 2+ H (Negative) Urine Blood Large H (Negative) Ur Leukocyte Esterase Large H (Negative) Urine RBC >182 H (0-5) /hpf Urine WBC >182 H (0-5) /hpf Urine WBC Clumps Many H (None) /hpf Urine Bacteria Occasional H (None) /hpf Microbiology - Last 24 Hours (Table) 02/09/19 18:54 Urine Culture - Preliminary Urine,Voided Diabetes panel 02/09/19 Range/Units 18:54 Sodium 140 (137-145) mmol/L Potassium 3.8 (3.5-5.1) mmol/L Chloride 106 (98-107) mmol/L Carbon Dioxide 21 L (22-30) mmol/L BUN 17 (7-17) mg/dL Creatinine 0.90 (0.52-1.04) mg/dL Glucose 90 (74-99) mg/dL Calcium 9.5 (8.4-10.2) mg/dL AST 28 (14-36) U/L ALT 32 (9-52) U/L Alkaline Phosphatase 108 (38-126) U/L Total Protein 6.9 (6.3-8.2) g/dL Albumin 3.8 (3.5-5.0) g/dL Calcium panel 02/09/19 02/09/19 Range/Units 18:54 18:54 Calcium 9.5 (8.4-10.2) mg/dL Phosphorus 2.9 (2.5-4.5) mg/dL Albumin 3.8 (3.5-5.0) g/dL Pituitary panel 02/09/19 Range/Units 18:54 Sodium 140 (137-145) mmol/L Potassium 3.8 (3.5-5.1) mmol/L Chloride 106 (98-107) mmol/L Carbon Dioxide 21 L (22-30) mmol/L BUN 17 (7-17) mg/dL Creatinine 0.90 (0.52-1.04) mg/dL Glucose 90 (74-99) mg/dL Calcium 9.5 (8.4-10.2) mg/dL Adrenal panel 02/09/19 Range/Units 18:54 Sodium 140 (137-145) mmol/L Potassium 3.8 (3.5-5.1) mmol/L Chloride 106 (98-107) mmol/L Carbon Dioxide 21 L (22-30) mmol/L BUN 17 (7-17) mg/dL Creatinine 0.90 (0.52-1.04) mg/dL Glucose 90 (74-99) mg/dL Calcium 9.5 (8.4-10.2) mg/dL Total Bilirubin 0.3 (0.2-1.3) mg/dL AST 28 (14-36) U/L ALT 32 (9-52) U/L Alkaline Phosphatase 108 (38-126) U/L Total Protein 6.9 (6.3-8.2) g/dL Albumin 3.8 (3.5-5.0) g/dL - Imaging CT scan - abdomen: report reviewed, image reviewed Assessment and Plan (1) Calculus of ureter Current Visit: Yes Status: Acute Code(s): N20.1 - CALCULUS OF URETER SNOMED Code(s): 32787555 (2) Hydronephrosis with renal and ureteral calculus obstruction Current Visit: Yes Status: Acute Code(s): N13.2 - HYDRONEPHROSIS WITH RENAL AND URETERAL CALCULOUS OBSTRUCTION SNOMED Code(s): 634233625 Plan: I explained to the patient that surgical removal of the stone is contraindicated in the presence of a UTI. She is currently receiving Rocephin, pending the results of the urine culture. Arrangements have been made for her to undergo cystoscopy with left ureteral stent insertion later today. The rationale for this was discussed in detail with the patient. She understands that she will require a secondary procedure for removal of the calculus, and that the stent cannot remain in place indefinitely. Risks associated with stent insertion include anesthesia, bleeding, infection, inability to place the stent, and ureteral injury. In either of the latter 2 scenarios, placement of a nephrostomy tube could be required. Time with Patient: Greater than 30
[2019-02-10] MEDS ORDERED: ONDANSETRON 4 MG/2 ML VIAL IVP PRN (10:44)
[2019-02-10] MEDS ORDERED: LACTATED RINGERS 1,000 ML IV ONE (13:56)
[2019-02-10] MEDS ORDERED: fentaNYL (PF) 50 MCG/ML 2 ML AMP ONE (14:14)
[2019-02-10] MEDS ORDERED: MIDAZOLAM 2 MG/2 ML VIAL ONE (14:14)
[2019-02-10] MEDS ORDERED: PROPOFOL 10 MG/ML 20 ML VIAL IV ONE (14:14)
[2019-02-10] MEDS ORDERED: LIDOCAINE 1% INJ 10MG/ML (20 ML MDV) ONE (14:14)
[2019-02-10] MEDS ORDERED: SUCCINYLCHOLINE CHLORIDE 100 MG/5 ML SYR IV ONE (14:14)
--- NOTE | 2019-02-10 14:58 | P.OP ---
Date of Procedure: 02/10/19 Preoperative Diagnosis: Left ureteral calculus Postoperative Diagnosis: Same Procedure(s) Performed: Cystoscopy, left ureteral stent insertion Anesthesia: RAPHAEL Surgeon: Angel Figueroa Estimated Blood Loss (ml): 0 IV fluids (ml): 500 Pathology: none sent Condition: stable Disposition: PACU Indications for Procedure: The patient is a 33-year-old white female, recently , status post vaginal delivery 7 days ago. She had a known kidney stone, which was identified but not treated prior to . Yesterday, she experienced acute onset of left flank pain, associated with fever, chills, and intractable hyperemesis. She presented to the emergency room. Urinalysis is suggestive of infection, and a computed tomography scan showed evidence of left hydronephrosis due to an 8 mm left proximal ureteral calculus. Operative Findings: Obstructing left proximal ureteral calculus. Description of Procedure: The patient was taken to the operating room and placed in the dorsolithotomy position, with legs supported in Omari stirrups. The external genitalia was prepped and draped sterilely. The 30 lens was used to introduce the 22-[place] Stortz cystoscopic sheath through the urethra and into the bladder under direct vision. The bladder was examined in its entirety. Both ureteral orifices were of normal anatomic location and configuration. No tumors or foreign bodies were seen. An angle-tip 0.035 inch Glidewire was passed through the cystoscope. The left ureteral orifice was cannulated, and the Glidewire was slowly advanced beyond the calculus, which was radio opaque, and up to the renal pelvis. A 26 cm, 6-[place] double-J ureteral stent was placed over the wire. Proper stent positioning was verified fluoroscopically and endoscopically. There was not a significant hydronephrotic connor, and the urine which drained was clear in appearance. The bladder was emptied and the cystoscope removed. The patient tolerated the procedure well was taken to the recovery room in stable condition.
--- NOTE | 2019-02-10 15:11 | FL ---
EXAMINATION TYPE: FL guidance operating room DATE OF EXAM: 02/10/2019 CLINICAL HISTORY: Left ureteral stent placement TECHNIQUE: Fluoroscopy. COMPARISON: None. FINDINGS: Fluoroscopic guidance was provided during procedure performed by Dr. Lal. A total of 11 seconds of fluoroscopic time was utilized during the procedure and 1 spot images was acquired duri ng ureteral stent placement. IMPRESSION: As Above.
--- NOTE | 2019-02-10 17:01 | P.HPIM ---
History of Present Illness H&P Date: 02/10/19 Chief Complaint: Left flank pain History of presenting complaint: This is a very pleasant 39-year-old patient who follows with Dr. Hook. Patient exactly a week ago had a baby girl. It was a normal delivery. Patient did have a laceration. And stitches were placed. Patient is breast-feeding. Having some vaginal discharge. Patient has known kidney stones. Patient is started of with the increasing pain in the left flank area and then came around in the front. And patient started having severe nausea vomiting and multiple episodes of vomiting. Along with fever. Admitted for the same. Patient is found to have a stone in the ureter with hydronephrosis. Patient's gait given a dose of IV ceftriaxone in the ER. Urology was consulted. They are planning to put a stent this afternoon. With pain medication IV fluids patient's pain is somewhat better. Review of systems: GEN.: Fever EYES: None HEENT: None NECK: None RESPIRATORY: None CARDIOVASCULAR: None GASTROINTESTINAL: As above GENITOURINARY: As above MUSCULOSKELETAL: None LYMPHATICS: None HEMATOLOGICAL: None PSYCHIATRY: None NEUROLOGICAL: None Past medical history: 2 pregnancies. Last delivery of one normal delivery 1 week ago. Kidney stones Patient does not remember history of SVT Social history: Lives with her boyfriend. 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 No smoking no alcohol. Family history: Hypertension Physical examination: VITAL SIGNS: T-max 100.3, pulse 54, respiration 18, Pressure 153 with 81, 99% room air GENERAL: BMI 36, sitting up, not in distress. EYES: Pupils equal. Conjunctiva normal. HEENT: External appearance of nose and ears normal, oral cavity grossly normal. NECK: JVD not raised; masses not palpable. HEART: First and second heart sounds are normal; no edema. LUNGS: Respiratory rate normal; clear to auscultation. ABDOMEN: Soft, nontender, liver spleen not palpable, no masses palpable. PSYCH: Alert and oriented x3; mood and affect normal. NEUROLOGICAL: Cranial nerves grossly intact; no facial asymmetry, power and sensation grossly intact. LYMPHATICS: No lymph nodes palpable in the axilla and neck Genitourinary/pelvic area not examined Investigations: White count 16.6, hemoglobin 12.8, potassium 3.8, creatinine 0.9 Lactic acid 1.7 UA positive for leukoesterase WBC Computed tomography scan of the abdomen and pelvis shows moderate to severe left hydro-ureteral nephrosis with a proximal left ureteral 8. Repeat her obstructing calculi. There is fat stranding surrounding the renal sinus Assessment: -Acute left obstructive pyelonephritis secondary to ureteral stone -Acute moderate to severe left hydroureteronephrosis from a 8 mm left ureteral stone -Patient's 1 week following a vaginal delivery -Sepsis from acute pyelonephritis, POA Plan: Patient started on IV fluids. IV ceftriaxone. Urology was consulted. Plan is to have a stent placed this afternoon. That'll be removed at a later date. Dr. Monster Lebron patient's final block press operator was also consulted. Did speak to the pharmacist. With breast-feeding ceftriaxone has been okay to be given. Past Medical History Past Medical History: Supraventricular Tachycardia (SVT) Additional Past Medical History / Comment(s): Kidney stones w History of Any Multi-Drug Resistant Organisms: None Reported Past Surgical History: No Surgical Hx Reported Past Anesthesia/Blood Transfusion Reactions: No Reported Reaction Past Psychological History: No Psychological Hx Reported Smoking Status: Former smoker Past Alcohol Use History: None Reported Past Drug Use History: None Reported - Past Family History Mother Family Medical History: Hypertension Father Family Medical History: Hypertension Medications and Allergies Home Medications Medication Instructions Recorded Confirmed Type Irr-Syxw-Ycuwl Acid 1 tab PO DAILY 07/14/14 02/09/19 History [-U Capsule] Ibuprofen [Motrin] 600 mg PO Q6HR PRN #40 tab 02/05/19 02/09/19 Rx Allergies Allergy/AdvReac Type Severity Reaction Status Date / Time No Known Allergies Allergy Verified 02/09/19 22:28 Physical Exam Vitals: Vital Signs Temp Pulse Pulse Pulse Resp BP BP 02/10/19 15:31 47 L 16 142/88 02/10/19 15:16 54 L 16 145/90 02/10/19 15:03 97.2 F L 66 16 142/86 02/10/19 13:43 97.6 F 48 L 16 168/83 02/10/19 11:56 98.4 F 43 L 20 139/85 02/10/19 11:30 98.4 F 43 L 20 139/85 02/10/19 09:21 52 L 133/82 02/10/19 08:19 98.4 F 49 L 20 150/95 08/05/19 06:15 55 L 02/10/19 03:50 97.6 F 45 L 16 139/83 02/10/19 00:55 45 L 02/10/19 00:41 98.4 F 47 L 16 160/89 02/09/19 22:55 98.6 F 58 L 20 151/90 02/09/19 20:42 100.3 F H 54 L 18 153/81 02/09/19 18:35 99.2 F 61 16 153/88 BP Pulse Ox 02/10/19 15:31 95 02/10/19 15:16 95 02/10/19 15:03 94 L 02/10/19 13:43 98 02/10/19 11:56 96 02/10/19 11:30 96 02/10/19 09:21 149/91 02/10/19 08:19 95 02/10/19 06:15 95 02/10/19 03:50 95 02/10/19 00:55 02/10/19 00:41 97 02/09/19 22:55 100 02/09/19 20:42 99 02/09/19 18:35 99 Intake and Output 02/10/19 02/10/19 02/10/19 06:59 14:59 22:59 Intake Total 700 0 Balance 700 0 Intake: IV 700 0 Other: Voiding Method Toilet Toilet Toilet # Voids 3 Results CBC & Chem 7: 02/09/19 18:54 02/09/19 18:54 Labs: Abnormal Lab Results - Last 24 Hours (Table) 02/09/19 02/09/19 02/09/19 Range/Units 18:54 18:54 18:54 WBC 16.6 H (3.8-10.6) k/uL Neutrophils # 13.9 H (1.3-7.7) k/uL Carbon Dioxide 21 L (22-30) mmol/L Urine Appearance Turbid H (Clear) Urine pH 8.5 H (5.0-8.0) Urine Protein 3+ H (Negative) Urine Ketones 2+ H (Negative) Urine Blood Large H (Negative) Ur Leukocyte Esterase Large H (Negative) Urine RBC >182 H (0-5) /hpf Urine WBC >182 H (0-5) /hpf Urine WBC Clumps Many H (None) /hpf Urine Bacteria Occasional H (None) /hpf Microbiology - Last 24 Hours (Table) 02/09/19 18:54 Urine Culture - Preliminary Urine,Voided Thrombosis Risk Factor Assmnt - Choose All That Apply Any of the Below Risk Factors Present?: Yes Each Factor Represents 1 point: Obesity (BMI >25), or , Swollen legs (current) Other Risk Factors: No Thrombosis Risk Factor Assessment Total Risk Factor Score: 3 Thrombosis Risk Factor Assessment Level: Moderate Risk
[2019-02-10] MEDS: SODIUM CHLORIDE 0.9% 1,000 ML IV SCH (17:27)
[2019-02-10] MEDS ORDERED: NAPROXEN 250 MG TAB PO PRN (22:19)
[2019-02-10 23:56] VITALS: RESP 18
[2019-02-11] MEDS: SODIUM CHLORIDE 0.9% 1,000 ML IV SCH ×2 (01:17→05:59)
[2019-02-11 06:55] LABS: HGB 10.6 gm/dL (11.4-16.0); MCH 30.5 pg (25.0-35.0); MCHC 33.2 g/dL (31.0-37.0); MCV 91.9 fL (80.0-100.0); Mean Platelet Volume 7.2; Platelet Count 253 k/uL (150-450); RBC 3.48 m/uL (3.80-5.40); RDW 12.9 % (11.5-15.5); WBC 9.2 k/uL (3.8-10.6)
[2019-02-11 07:05] LABS: African American GFR (CKD) >90 (>60 ml/min/1.73 sqM); Anion Gap 8 mmol/L; Blood Urea Nitrogen 16 mg/dL (7-17); Calcium 8.4 mg/dL (8.4-10.2); Carbon Dioxide 22 mmol/L (22-30); Chloride 109 mmol/L (98-107); Glucose 80 mg/dL (74-99); Potassium 3.9 mmol/L (3.5-5.1); Sodium 139 mmol/L (137-145)
--- NOTE | 2019-02-11 10:15 | P.CRDCN ---
History of Present Illness Consult date: 02/11/19 Requesting physician: Bari Lal Reason for Consult (text): Bradycardia. Chief complaint: Abdominal pain History of present illness: This is a pleasant 33-year-old female who delivered a healthy baby girl 8 days ago, during her was known that the patient had a kidney st one, she states that she presented to the hospital on this occasion with symptoms of abdominal pain in the left flank area which radiated around to the front of her abdomen. She did have multiple episodes of vomiting and fever. She was found to have a stone in the ureter with hydronephrosis and was given IV antibiotics in the emergency room. Urology was consulted. Cardiology consultation was requested because of bradycardia. EKG performed on arrival here showed a sinus bradycardia with no acute changes. She denies any chest discomfort, her breathing is overall stable. Patient underwent a stent placement of the left ureter. Blood pressure 140/80 with a heart rate in the 40s, 98% on room air. White blood cell count on arrival 16.6, 9.2 this morning, hemoglobin 10.6, platelet count 253. Sodium 139, potassium 3.9, BUN 16 creatinine 0.8. Urinalysis showed large amount of leukocyte Estrace. Past Medical History Past Medical History: Supraventricular Tachycardia (SVT) Additional Past Medical History / Comment(s): Kidney stones w History of Any Multi-Drug Resistant Organisms: None Reported Past Surgical History: No Surgical Hx Reported Past Anesthesia/Blood Transfusion Reactions: No Reported Reaction Past Psychological History: No Psychological Hx Reported Smoking Status: Former smoker Past Alcohol Use History: None Reported Past Drug Use History: None Reported - Past Family History Mother Family Medical History: Hypertension Father Family Medical History: Hypertension Medications and Allergies Home Medications Medication Instructions Recorded Confirmed Type Fcz-Zbjp-Rabal Acid 1 tab PO DAILY 07/14/14 02/09/19 History [-U Capsule] Ibuprofen [Motrin] 600 mg PO Q6HR PRN #40 tab 02/05/19 02/09/19 Rx Allergies Allergy/AdvReac Type Severity Reaction Status Date / Time No Known Allergies Allergy Verified 02/09/19 22:28 Physical Exam Vitals: Vital Signs Temp Pulse Pulse Resp BP Pulse Ox 02/10/19 23:56 50 L 18 02/10/19 23:00 96.5 F L 48 L 18 167/87 96 02/10/19 18:56 98.3 F 63 16 137/84 99 02/10/19 17:45 52 L 20 153/87 100 02/10/19 17:15 45 L 20 147/85 98 02/10/19 16:45 41 L 20 147/81 98 02/10/19 16:30 42 L 20 160/81 98 02/10/19 16:15 37 L 20 146/76 98 02/10/19 16:00 41 L 20 143/81 98 02/10/19 15:45 98.1 F 48 L 20 145/89 97 02/10/19 15:31 47 L 16 142/88 95 02/10/19 15:16 54 L 16 145/90 95 02/10/19 15:03 97.2 F L 66 16 142/86 94 L 02/10/19 13:43 97.6 F 48 L 16 168/83 98 02/10/19 11:56 98.4 F 43 L 20 139/85 96 02/10/19 11:30 98.4 F 43 L 20 139/85 96 Intake and Output 02/10/19 02/11/19 02/11/19 22:59 06:59 14:59 Intake Total 300 450 120 Output Total 180 Balance 120 450 120 Intake: IV 0 Intake, IV Titration 300 Amount Sodium Chloride 0.9% 1, 300 000 ml @ 100 mls/hr IV . Q10H [facility] Rx#:[id number] Oral 450 120 Output: Urine 180 Other: Voiding Method Toilet Toilet # Voids 1 2 Weight 107.5 kg PHYSICAL EXAMINATION: GENERAL: 33-year-old female in no acute distress at the time of my e xamination HEENT: Head is atraumatic, normocephalic. Pupils equal, round. Sclera anicteric. Conjunctiva are clear. Mucous membranes of the mouth are moist. Neck is supple. There is no elevated jugular venous pressure. No carotid bruit is heard. HEART EXAMINATION: Heart S1, S2 normal. No murmur or gallop heard. CHEST EXAMINATION: Lungs are clear to auscultation and precussion. No chest wall tenderness is noted on palpation or with deep breathing. ABDOMEN: Soft, nontender. Bowel sounds are heard. No organomegaly noted. EXTREMITIES: 2+ peripheral pulses with no evidence of peripheral edema and no calf tenderness noted. NEUROLOGIC patient is awake, alert and oriented 3 . . Results 02/11/19 06:05 02/11/19 06:05 CBC 02/11/19 Range/Units 06:05 WBC 9.2 (3.8-10.6) k/uL RBC 3.48 L (3.80-5.40) m/uL Hgb 10.6 L (11.4-16.0) gm/dL Hct 32.0 L (34.0-46.0) % Plt Count 253 (150-450) k/uL Comprehensive Metabolic Panel 02/11/19 Range/Units 06:05 Sodium 139 (137-145) mmol/L Potassium 3.9 (3.5-5.1) mmol/L Chloride 109 H (98-107) mmol/L Carbon Dioxide 22 (22-30) mmol/L BUN 16 (7-17) mg/dL Creatinine 0.83 (0.52-1.04) mg/dL Glucose 80 (74-99) mg/dL Calcium 8.4 (8.4-10.2) mg/dL Current Medications Generic Name Dose Route Start Last Admin Trade Name Freq PRN Reason Stop Dose Admin Sodium Chloride 1,000 mls @ 100 mls/hr 02/09/19 22:30 02/11/19 05:59 Saline 0.9% IV Not Given .Q10H KONSTANTIN Ceftriaxone Sodium 1 gm/ 50 mls @ 100 mls/hr 02/10/19 18:00 02/11/19 09:34 Sodium Chloride IVPB 100 mls/hr Q24HR KONSTANTIN Administration Morphine Sulfate 4 mg 02/09/19 22:28 Morphine Sulfate (Inj) IVP Q4HR PRN Pain Naloxone HCl 0.2 mg 02/09/19 22:25 Narcan IV Q2M PRN Opioid Reversal Naproxen 250 mg 02/10/19 22:19 02/10/19 22:35 Naprosyn PO 250 mg TID PRN Administration Mild Discomfort Ondansetron HCl 4 mg 02/10/19 10:44 Zofran IVP Q6HR PRN nausea Intake and Output 02/10/19 02/11/19 02/11/19 22:59 06:59 14:59 Intake Total 300 450 120 Output Total 180 Balance 120 450 120 Intake: IV 0 Intake, IV Titration 300 Amount Sodium Chloride 0.9% 1, 300 000 ml @ 100 mls/hr IV . Q10H KONSTANTIN Rx#:[id number] Oral 450 120 Output: Urine 180 Other: Voiding Method Toilet Toilet # Voids 1 2 Weight 107.5 kg 02/11/19 06:05 02/11/19 06:05 EKG Interpretations (text) EKG showed a sinus bradycardia Assessment and Plan Plan: Assessment and plan #1 acute left obstructive Nayeli nephritis secondary to ureteral stone status post stenting #2 sinus bradycardia #3 , 8 days following vaginal delivery of a healthy baby girl Plan We will obtain an echocardiogram with Doppler study. We will also request a TSH level. Further recommendations to follow. DNP note has been reviewed, I agree with a documented findings and plan of care. Patient was seen and examined.
[2019-02-11 15:29] VITALS: BP 186/98; PULSE 40; TEMP 97.7
--- NOTE | 2019-02-11 16:25 | ECHOF ---
Referral Reason:bradycardia MEASUREMENTS -------- HEIGHT: 170.2 cm WEIGHT: 104.3 kg BP: IVSd: 1.1 cm (0.6 - 1.1) LVIDd: 4.9 cm (3.9 - 5.3) LVPWd: 0.9 cm (0.6 - 1.1) IVSs: 1.4 cm LVIDs: 3.4 cm LVPWs: 1.3 cm LA Diam: 4.1 cm (2.7 - 3.8) RVIDd: 2.5 cm (< 3.3) LAESV Index (A-L): 30.47 ml/m Ao Diam: 2.8 cm (2.0 - 3.7) LA Diam: 4.0 cm (2.7 - 3.8) AV Cusp: 1.8 cm (1.5 - 2.6) EPSS: 0.6 cm MV E Doug: 1.03 m/s MV A Doug: 0.82 m/s MV E/A Ratio: 1.25 AR PHT: 594 ms RAP: 5.00 mmHg RVSP: 36.83 mmHg MV EF SLOPE: 102.75 mm/s (70 - 150) MV EXCURSION: 15.97 mm (> 18.000) FINDINGS -------- Sinus rhythm. This was a technically good study. LV size, wall thickness and systolic function are normal, with an EF greater than 55%. The left jose luis tricular size is normal. The right ventricle is normal in size. The left atrium is mildly dilated. LA is midly dilated 29-33ml/m2. The right atrial size is normal. The aortic valve is trileaflet, and appears structurally normal. No aortic stenosis or regurgitation. Mild mitral regurgitation is present. Mild tricuspid regurgitation present. There is mild pulmonary hypertension. The right ventricular systolic pressure, as measured by Doppler, is 36.83mmHg. There is no pulmonic regurgitation present. The aortic root size is normal. There is no pericardial effusion. CONCLUSIONS -------- 1. LV size, wall thickness and systolic function are normal, with an EF greater than 55%. 2. The left ventricular size is normal. 3. The right ventricle is normal in size. 4. The left atrium is mildly dilated. 5. LA is midly dilated 29-33ml/m2. 6. The right atrial size is normal. 7. The aortic valve is trileaflet, and appears structurally normal. No aortic stenosis or regurgitati on. 8. Mild mitral regurgitation is present. 9. Mild tricuspid regurgitation present. 10. There is mild pulmonary hypertension. 11. The right ventricular systolic pressure, as measured by Doppler, is 36.83mmHg. 12. There is no pulmonic regurgitation present. 13. The aortic root size is normal. 14. There is no pericardial effusion. OPEN CLAIMS REPRESENTATIVE: Gris Uribe RDCS
--- NOTE | 2019-02-12 00:24 | P.DS ---
Providers Date of admission: 02/09/19 22:17 Expected date of discharge: 02/11/19 Attending physician: Bari Lal Consults: 02/09/19 23:27 Consult Physician Routine Consulting Provider: Misael Lebron Consult Reason/Comments: known Do you want consulting provider notified?: Yes 02/10/19 07:39 Consult Physician Routine Consulting Provider: Angel Figueroa Consult Reason/Comments: nephrolithiasis Do you want consulting provider notified?: Already Contacted 02/10/19 17:19 Consult Physician Urgent Consulting Provider: [facility] Consult Reason/Comments: BRADYCARDIA WITH ARRYTHMIA Do you want consulting provider notified?: Yes Primary care physician: Ismael Hook Hospital Course: Hospital course: This is a very pleasant 39-year-old patient who follows with Dr. Hook. Patient exactly a week ago had a baby girl. It was a normal delivery. Patient did have a laceration. And stitches were placed. Patient is breast-feeding. Having some vaginal discharge. Patient has known kidney stones. Patient is started of with the increasing pain in the left flank area and then came around in the front. And patient started having severe nausea vomiting and multiple episodes of vomiting. Along with fever. Admitted for the same. Patient is found to have a stone in the ureter with hydronephrosis. Patient's gait given a dose of IV ceftriaxone in the ER. Urology was consulted. They are planning to put a stent this afternoon. With pain medication IV fluids patient's pain is somewhat better. Treated for left-sided hydroureter nephrosis and pyelonephritis. Received IV ceftriaxone. A double-J stent was placed on the left ureter. For a ureteral stone. Patient was put on ceftriaxone and is discharged on Keflex of the discussing both the medications the pharmacist because patient is breast- feeding. Patient doing much better. Patient will have to have the double-J stent removed at a later date. Patient also has sinus bradycardia. [place] to be physiological. Seen by cardiology. 2-D echo was unremarkable. Consultation: Dr. Paiz from urology Dr. George Gan from cardiology Dr. Misael Lebron from obstetrics Physical examination: VITAL SIGNS: 97.7, 54, 18, 1 39 x 91, 99% room air GENERAL: BMI 36, sitting up, not in distress. EYES: Pupils equal. Conjunctiva normal. HEENT: External appearance of nose and ears normal, oral cavity grossly normal. NECK: JVD not raised; masses not palpable. HEART: First and second heart sounds are normal; no edema. LUNGS: Respiratory rate normal; clear to auscultation. ABDOMEN: Soft, nontender, liver spleen not palpable, no masses palpable. PSYCH: Alert and oriented x3; mood and affect normal. Genitourinary/pelvic area not examined Investigations: White count 9.2 down from 16.6 hemoglobin 10.6 creatinine 0.83 Urine blood culture negative Lactic acid 1.7 UA positive for leukoesterase WBC Computed tomography scan of the abdomen and pelvis shows moderate to severe left hydro-ureteral nephrosis with a proximal left ureteral 8. Repeat her obstructing calculi. There is fat stranding surrounding the renal sinus Procedure: Left ureter double-J stent catheter placed by Dr. Paiz Discharge diagnosis: -Acute left obstructive pyelonephritis secondary to ureteral stone -Acute moderate to severe left hydroureteronephrosis from a 8 mm left ureteral stone -Patient's 1 week following a vaginal delivery -Sepsis from acute pyelonephritis, POA Disposition: Home Patient Condition at Discharge: Stable Plan - Discharge Summary Discharge Rx Participant: No New Discharge Prescriptions: New Cephalexin [Keflex] 500 mg PO Q6HR #42 cap Continue Adu-Zcko-Sskhx Acid [-U Capsule (formulary)] 1 tab PO DAILY Ibuprofen [Motrin] 600 mg PO Q6HR PRN #40 tab PRN Reason: Mild Pain Or Fever >= 100.5 Discharge Medication List Bdq-Shtg-Bmblq Acid [-U Capsule (formulary)] 1 tab PO DAILY 07/14/14 [History] Ibuprofen [Motrin] 600 mg PO Q6HR PRN #40 tab 02/05/19 [Rx] Cephalexin [Keflex] 500 mg PO Q6HR #42 cap 02/11/19 [Rx] Follow up Appointment(s)/Referral(s): Odilon Nichols MD [STAFF PHYSICIAN] - 02/25/19 3:15 pm (Event monitor for 30 days. ) Angel Figueroa MD [STAFF PHYSICIAN] - 03/05/19 10:40 am (please arrive at 10:30am) Ismael Hook MD [Primary Care Provider] - 02/13/19 11:15 am Patient Instructions/Handouts: Bradycardia (DC), Lithotripsy (DC) Discharge Disposition: HOME SELF-CARE
== END 2019-02-11 17:00 | disposition home or self-care (01) | DRG 769 ==
LOC: EC 18:32 → 6PED 22:17 → 3SCARD 02-10 18:20
PROVIDERS: ADMIT Hospitalist; ATTEND Hospitalist
PROC: 0T778DZ Dilation of Left Ureter with Intraluminal Device, Via Natural or Artificial Opening Endoscopic (ICD-10-PCS; principal; 2019-02-10 14:30)
DX: O85 Puerperal sepsis (principal); N13.6 Pyonephrosis; N20.1 Calculus of ureter; R00.1 Bradycardia, unspecified; R31.9 Hematuria, unspecified; Z87.442 Personal history of urinary calculi; Z87.891 Personal history of nicotine dependence; Z82.49 Family history of ischemic heart disease and other diseases of the circulatory system
CPT/HCPCS: 36415; 74176; 80048; 80053; 81001; 82150; 83605; 83615; 83690; 83735; 84100; 84443; 85025; 85027; 85384; 85610; 85730; 87040; 87086; 93270; 93306; 96361; 96365; 96375; 96376; 99285

== ENCOUNTER → 2019-05-16 | Outpatient (CLI) | payer OTHER ==
--- NOTE | 2019-05-16 08:49 | US ---
EXAMINATION TYPE: US kidneys/renal and bladder DATE OF EXAM: 05/16/2019 COMPARISON: NONE CLINICAL HISTORY: R93.4 Hx of hydronephrosis. History of kidney stones and hydronephrosis EXAM MEASUREMENTS: Right Kidney: 11.1 x 4.0 x 4.4 cm Left Kidney: 10.8 x 6.0 x 5.3 cm Right Kidney: no evidence of hydronephrosis or mass Left Kidney: dromedary hump Bladder: not fully distended Bilateral Jets seen: yes There is no evidence for hydronephrosis at this point in time. No nephrolithiasis is seen. No huy s are identified. The urinary bladder is anechoic. Bilateral ureteral jets are seen. IMPRESSION: No sonographic evidence of hydronephrosis or nephrolithiasis within either kidney.
== END | disposition home or self-care (01) ==
LOC: RADUSWWP 07:42
PROVIDERS: ATTEND Urology
DX: Z09 Encounter for follow-up examination after completed treatment for conditions other than malignant neoplasm (principal); Z87.448 Personal history of other diseases of urinary system
CPT/HCPCS: 76770

== ENCOUNTER 2020-11-11 14:54 | Emergency (ER) | payer OTHER ==
[2020-11-11 15:01] VITALS: RESP 18
[2020-11-11] MEDS ORDERED: SODIUM CHLORIDE 0.9% 500 ML 500 ML IV ONE (15:45)
[2020-11-11] MEDS ORDERED: KETOROLAC 15 MG/ML 1 ML VIAL IVP STA (15:45)
[2020-11-11] MEDS ORDERED: ONDANSETRON 4 MG/2 ML VIAL IVP STA (15:45)
[2020-11-11 16:01] LABS: Appearance,Urine Turbid (Clear); Bacteria,Urine Rare /hpf; Bilirubin,Urine Negative (Negative); Blood,Urine Large (Negative); Budding Yeast,Urine Occasional /hpf; Color,Urine Light Red; Glucose,Urine (UA) Negative (Negative); Ketones,Urine 1+ (Negative); Leukocyte Esterase,Urine Moderate (Negative); Mucus,Urine Many /hpf; Nitrite,Urine Positive (Negative); PH, Urine 5.5 (5.0-8.0); Protein,Urine 1+ (Negative); RBC,Urine >182 /hpf (0-5); Specific Gravity,Urine 1.022 (1.001-1.035); Squamous Epithelial Cell,Urine 28 /hpf (0-4); Uric Acid Crystals,Urine Moderate /hpf; Urobilinogen,Urine <2.0 mg/dL (<2.0); WBC,Urine 64 /hpf (0-5)
[2020-11-11 16:08] LABS: Basophils # (A) 0.1 k/uL (0-0.2); Basophils % (A) 0 %; Eosinophils # (A) 0.2 k/uL (0-0.7); Eosinophils % (A) 1 %; HCT 41.9 % (34.0-46.0); HGB 14.5 gm/dL (11.4-16.0); Lymphocytes # (A) 1.6 k/uL (1.0-4.8); Lymphocytes % (A) 8 %; MCHC 34.7 g/dL (31.0-37.0); MCV 89.4 fL (80.0-100.0); Mean Platelet Volume 6.9; Monocytes # (A) 0.4 k/uL (0-1.0); Monocytes % (A) 2 %; Neutrophils # (A) 18.7 k/uL (1.3-7.7); Neutrophils % (A) 89 %; Platelet Count 372 k/uL (150-450); RBC 4.69 m/uL (3.80-5.40); RDW 12.5 % (11.5-15.5); WBC 21.1 k/uL (3.8-10.6)
[2020-11-11 16:23] LABS: ALT 40 U/L (4-34); AST 27 U/L (14-36); African American GFR (CKD) >90 (>60 ml/min/1.73 sqM); Albumin 4.9 g/dL (3.5-5.0); Alkaline Phosphatase 77 U/L (38-126); Anion Gap 13 mmol/L; Blood Urea Nitrogen 17 mg/dL (7-17); Calcium 10.1 mg/dL (8.4-10.2); Carbon Dioxide 20 mmol/L (22-30); Chloride 104 mmol/L (98-107); Glucose 92 mg/dL (74-99); Non-African American GFR(CKD) >90 (>60 ml/min/1.73 sqM); Potassium 4.3 mmol/L (3.5-5.1); Sodium 137 mmol/L (137-145); Total Bilirubin 0.5 mg/dL (0.2-1.3); Total Protein 8.3 g/dL (6.3-8.2)
--- NOTE | 2020-11-11 17:24 | CT ---
EXAMINATION TYPE: CT abdomen pelvis wo con DATE OF EXAM: 11/11/2020 COMPARISON: 02/09/2019 HISTORY: Left flank pain. CT DLP: 1303.4 mGycm Automated exposure control for dose reduction was used. Images obtained from the diaphragm to the floor the pelvis without contrast. The lung bases are clear. There is no pleural effusion. Heart size is normal. There is no pericardial effusion. Liver spleen stomach pancreas gallbladder appear intact. The bile ducts are not dilated. There is no adrenal mass. Kidneys have normal size. There is mild left-sided hydronephrosis and hydro ureter. There are small calculi in the distal left ureter close to the ureterovesical junction. These measure 2 to 3 mm. Bladder distends smoothly. There is minimal periureteral edema. There are a few s mall calculi in the left kidney that measure up to 3 mm. I see no calculi in the right kidney. There is no retroperitoneal adenopathy. There is no inguinal hernia. Uterus is anteverted. There is n o pelvic mass. There is no free fluid in the pelvis. The lumbar vertebra have normal spacing and alignment. There is no compression fracture. The bony pel vis is intact. The hip joints are intact. Appendix appears normal. IMPRESSION: Small obstructing calculi in the distal left ureter with mild left-sided hydronephrosis and hydrouret er. Obstruction is less severe than old CT scan.
[2020-11-11 17:31] VITALS: TEMP 98.5
[2020-11-11] MEDS ORDERED: HYDROmorphone 0.5 MG/0.5 ML SYRINGE IVP STA (18:20)
--- NOTE | 2020-11-11 18:20 | ED ---
Back Pain HPI <Elliot Irvin - Last Filed: 11/11/20 18:25> - General Source: patient Limitations: no limitations <Jania Kaiser - Last Filed: 11/11/20 19:39> - General Chief Complaint: Back Pain/Injury Stated Complaint: Poss Kidney Stone Time Seen by Provider: 11/11/20 15:33 - History of Present Illness Initial Comments: 34-year-old feel presenting for chief complaint of left flank pain. Patient states that they should slight left flank pain that worsened this morning she states that she tetanus chills nausea the pain radiates towards her left side she states that this is similar to when she's had a kidney stone the past which was an infected stone she states. Patient denies recording a fever. She doesn't chest pain shortness of breath. Patient denies any right lower quadrant pain and pelvic pain. Her vaginal bleeding she denies . Patient admits to dysuria urgency frequency. Patient states she had similar symptoms in the left back 2 weeks ago but it subsided after one day and taking ibuprofen. Patient has no additional complaints upon arrival she appears uncomfortable but nontoxic (Jania Kaiser) - Related Data Home Medications Medication Instructions Recorded Confirmed Ibuprofen [Motrin Ib] 800 mg PO Q8H PRN 11/11/20 11/11/20 Norethindrone-E.estradiol-Iron 1 tab PO HS 11/11/20 11/11/20 [Junel Fe 1.5 mg-30 Mcg Tablet] Previous Rx's Medication Instructions Recorded Cephalexin [Keflex] 500 mg PO Q6HR 7 Days #28 cap 11/11/20 Ketorolac [Toradol] 10 mg PO Q8HR PRN 3 Days #9 tab 11/11/20 Ondansetron Odt [Zofran Odt] 4 mg PO Q8HR PRN 3 Days #9 tab 11/11/20 Allergies Allergy/AdvReac Type Severity Reaction Status Date / Time No Known Allergies Allergy Verified 11/11/20 16:38 Review of Systems ROS Other: All systems not noted in ROS Statement are negative. <Elliot Irvin - Last Filed: 11/11/20 18:25> ROS Other: All systems not noted in ROS Statement are negative. <Jania Kaiser - Last Filed: 11/11/20 19:39> ROS Statement: Those systems with pertinent positive or pertinent negative responses have been documented in the HPI. Past Medical History Past Medical History: Supraventricular Tachycardia (SVT) Additional Past Medical History / Comment(s): Kidney stones w History of Any Multi-Drug Resistant Organisms: None Reported Past Surgical History: No Surgical Hx Reported Past Anesthesia/Blood Transfusion Reactions: No Reported Reaction Past Psychological History: No Psychological Hx Reported Smoking Status: Current some day smoker Past Alcohol Use History: None Reported Past Drug Use History: None Reported - Past Family History Mother Family Medical History: Hypertension Father Family Medical History: Hypertension <Jania Kaiser - Last Filed: 11/11/20 19:39> General Exam Limitations: no limitations <Jania Kaiser - Last Filed: 11/11/20 19:39> - General Exam Comments Initial Comments: General: The patient is awake and alert, in no distress Eye: +3mm pupils are equal, round and reactive to light, extra-ocular movements are intact. No nystagmus. There is normal conjunctiva bilaterally. No signs of icterus. Ears, nose, mouth and throat: There are moist mucous membranes and no oral lesions. Neck: The neck is supple, there is no tenderness or JVD. Cardiovascular: There is a regular rate and rhythm. No murmur, rub or gallop is appreciated. Respiratory: Lungs are clear to auscultation, respirations are non-labored, breath sounds are equal. No wheezes, stridor, rales, or rhonchi. Gastrointestinal: Soft, non-distended, non-tender abdomen without masses or organomegaly noted. There is no rebound or guarding present. Musculoskeletal: Normal ROM, no tenderness. Strength 5/5. Sensation intact. Radial and DP pulses equal bilaterally 2+. Neurological: A&O x 3. CN II-XII intact grossly, There are no obvious motor or sensory deficits. Coordination appears grossly intact. Speech is normal. Skin: Skin is warm and dry and no rashes or lesions are noted. Psychiatric: Cooperative, appropriate mood & affect, normal judgment. (Jania Kaiser) Course Vital Signs 11/11/20 11/11/20 11/11/20 14:57 17:30 19:35 Temperature 97.9 F 98.5 F Pulse Rate 90 90 89 Respiratory 18 18 18 Rate Blood Pressure 142/92 148/92 146/81 O2 Sat by Pulse 100 100 99 Oximetry Medical Decision Making - Lab Data Result diagrams: 11/11/20 15:55 11/11/20 15:55 <Elliot Irvin - Last Filed: 11/11/20 18:25> - Lab Data Result diagrams: 11/11/20 15:55 11/11/20 15:55 <Jania Kaiser - Last Filed: 11/11/20 19:39> - Medical Decision Making Patient reevaluated by myself, Dr. Irvin. Patient resting comfortably in bed feeling much better at this time. Left CVA and abdomen soft and nontender. Patient updated on results. Case was discussed with Dr. Paiz was familiar with this patient. He does recommend antibiotics and return for worsening symptoms or fever. (Elliot Irvin) 34yo female presenting for cc of left flank pain. 21 wbc. Nitrate positive urine. patient has mild hypertension. no hypotension. no tachycardia with no recorded fevers. patient case discussed with Dr. Irvin who consulted Dr Figueroa who recommends discharge on oral abx return for fevers/pain/worsening symptoms. pt is aware of strict return parameters pt discharged per recommendation of specialist/attending. pt appears well and was agreeable to discharge. (Jania Kaiser) - Lab Data Lab Results 11/11/20 11/11/20 11/11/20 Range/Units 15:39 15:39 15:55 WBC 21.1 H (3.8-10.6) k/uL RBC 4.69 (3.80-5.40) m/uL Hgb 14.5 (11.4-16.0) gm/dL Hct 41.9 (34.0-46.0) % MCV 89.4 (80.0-100.0) fL MCH 31.0 (25.0-35.0) pg MCHC 34.7 (31.0-37.0) g/dL RDW 12.5 (11.5-15.5) % Plt Count 372 (150-450) k/uL MPV 6.9 Neutrophils % 89 % Lymphocytes % 8 % Monocytes % 2 % Eosinophils % 1 % Basophils % 0 % Neutrophils # 18.7 H (1.3-7.7) k/uL Lymphocytes # 1.6 (1.0-4.8) k/uL Monocytes # 0.4 (0-1.0) k/uL Eosinophils # 0.2 (0-0.7) k/uL Basophils # 0.1 (0-0.2) k/uL Sodium (137-145) mmol/L Potassium (3.5-5.1) mmol/L Chloride (98-107) mmol/L Carbon Dioxide (22-30) mmol/L Anion Gap mmol/L BUN (7-17) mg/dL Creatinine (0.52-1.04) mg/dL Est GFR (CKD-EPI)AfAm (>60 ml/min/1.73 sqM) Est GFR (CKD-EPI)NonAf (>60 ml/min/1.73 sqM) Glucose (74-99) mg/dL Calcium (8.4-10.2) mg/dL Total Bilirubin (0.2-1.3) mg/dL AST (14-36) U/L ALT (4-34) U/L Alkaline Phosphatase (38-126) U/L Total Protein (6.3-8.2) g/dL Albumin (3.5-5.0) g/dL Urine Color Light Red Urine Appearance Turbid H (Clear) Urine pH 5.5 (5.0-8.0) Ur Specific [place] 1.022 (1.001-1.035) Urine Protein 1+ H (Negative) Urine Glucose (UA) Negative (Negative) Urine Ketones 1+ H (Negative) Urine Blood Large H (Negative) Urine Nitrite Positive H (Negative) Urine Bilirubin Negative (Negative) Urine Urobilinogen <2.0 (<2.0) mg/dL Ur Leukocyte Esterase Moderate H (Negative) Urine RBC >182 H (0-5) /hpf Urine WBC 64 H (0-5) /hpf Ur Squamous Epith Cells 28 H (0-4) /hpf Uric Acid Crystals Moderate H (None) /hpf Urine Bacteria Rare H (None) /hpf Urine Mucus Many H (None) /hpf Urine Yeast (Budding) Occasional H (None) /hpf Urine HCG, Qual Not Detected (Not Detectd) 11/11/20 Range/Units 15:55 WBC (3.8-10.6) k/uL RBC (3.80-5.40) m/uL Hgb (11.4-16.0) gm/dL Hct (34.0-46.0) % MCV (80.0-100.0) fL MCH (25.0-35.0) pg MCHC (31.0-37.0) g/dL RDW (11.5-15.5) % Plt Count (150-450) k/uL MPV Neutrophils % % Lymphocytes % % Monocytes % % Eosinophils % % Basophils % % Neutrophils # (1.3-7.7) k/uL Lymphocytes # (1.0-4.8) k/uL Monocytes # (0-1.0) k/uL Eosinophils # (0-0.7) k/uL Basophils # (0-0.2) k/uL Sodium 137 (137-145) mmol/L Potassium 4.3 (3.5-5.1) mmol/L Chloride 104 (98-107) mmol/L Carbon Dioxide 20 L (22-30) mmol/L Anion Gap 13 mmol/L BUN 17 (7-17) mg/dL Creatinine 0.69 (0.52-1.04) mg/dL Est GFR (CKD-EPI)AfAm >90 (>60 ml/min/1.73 sqM) Est GFR (CKD-EPI)NonAf >90 (>60 ml/min/1.73 sqM) Glucose 92 (74-99) mg/dL Calcium 10.1 (8.4-10.2) mg/dL Total Bilirubin 0.5 (0.2-1.3) mg/dL AST 27 (14-36) U/L ALT 40 H (4-34) U/L Alkaline Phosphatase 77 (38-126) U/L Total Protein 8.3 H (6.3-8.2) g/dL Albumin 4.9 (3.5-5.0) g/dL Urine Color Urine Appearance (Clear) Urine pH (5.0-8.0) Ur Specific [place] (1.001-1.035) Urine Protein (Negative) Urine Glucose (UA) (Negative) Urine Ketones (Negative) Urine Blood (Negative) Urine Nitrite (Negative) Urine Bilirubin (Negative) Urine Urobilinogen (<2.0) mg/dL Ur Leukocyte Esterase (Negative) Urine RBC (0-5) /hpf Urine WBC (0-5) /hpf Ur Squamous Epith Cells (0-4) /hpf Uric Acid Crystals (None) /hpf Urine Bacteria (None) /hpf Urine Mucus (None) /hpf Urine Yeast (Budding) (None) /hpf Urine HCG, Qual (Not Detectd) Disposition <Elliot Irvin - Last Filed: 11/11/20 18:25> Is patient prescribed a controlled substance at d/c from ED?: No Time of Disposition: 18:29 <Jania Kaiser Eboni - Last Filed: 11/11/20 19:39> Clinical Impression: Left ureteral calculus, UTI (urinary tract infection) Disposition: HOME SELF-CARE Condition: Good Instructions (If sedation given, give patient instructions): Kidney Stones (ED) Additional Instructions: Please use medication as discussed. Please follow-up with urology in the next 2-3 days. RETURN TO ER IF DEVELOP FEVER OR PAIN UNCONTROLLED. Please return to emergency room if the symptoms increase or worsen or for any other concerns. Prescriptions: Cephalexin [Keflex] 500 mg PO Q6HR 7 Days #28 cap Ketorolac [Toradol] 10 mg PO Q8HR PRN 3 Days #9 tab PRN Reason: Pain Ondansetron Odt [Zofran Odt] 4 mg PO Q8HR PRN 3 Days #9 tab PRN Reason: Nausea Referrals: Ismael Hook MD [Primary Care Provider] - 1-2 days Angel Figueroa MD [STAFF PHYSICIAN] - 1-2 days
[2020-11-11 19:36] VITALS: BP 146/81; PULSE 89
== END 2020-11-11 19:36 | disposition home or self-care (01) ==
LOC: EC 14:54
DX: N13.6 Pyonephrosis (principal); N39.0 Urinary tract infection, site not specified; Z87.442 Personal history of urinary calculi; F17.200 Nicotine dependence, unspecified, uncomplicated
CPT/HCPCS: 36415; 80053; 85025; 81001; 81025; 87040; 87086; 87077; 87186; 74176; 99284; 96365; 96375 ×3; 96361; J2405; J0696; J1885; J1170

== ENCOUNTER → 2021-01-03 | Outpatient (CLI) | payer OTHER ==
--- NOTE | 2021-01-03 16:15 | XR ---
EXAMINATION TYPE: XR KUB DATE OF EXAM: 01/03/2021 3:43 PM CLINICAL HISTORY: Suspected kidney stones within the urethra TECHNIQUE: Single supine KUB image of the abdomen is obtained. COMPARISON: CT abdomen and pelvis 11/11/2020 . FINDINGS: Nonspecific, nonobstructive bowel gas pattern. Multiple presumed pelvic phleboliths are see n. No definite renal or ureteral calculi. No definite evidence of urethral calculus. Osseous structur es are unremarkable. IMPRESSION: 1. No definite evidence of renal, ureteral, or visualized urethral calculus.
--- NOTE | 2021-01-03 16:58 | US ---
EXAMINATION TYPE: US kidneys/renal and bladder DATE OF EXAM: 01/03/2021 19 COMPARISON: 11 8 CLINICAL HISTORY: N21.1 Calculus in urethra. EXAM MEASUREMENTS: Right Kidney: 11.8 x 4.9 x 4.4 cm Left Kidney: 11.6 x 7.0 x 6.0 cm Right Kidney: No hydronephrosis or right renal calculi seen Left Kidney: No hydronephrosis, 2 probable stones measuring 0.4 x 0.2 x 0.4cm and 0.5 x 0.5 x 0.5cm Bladder: wnl, not fully distended There is no evidence for hydronephrosis at this point in time. IMPRESSION: 1. The urinary bladder is not fully distended. Ureteral jets are not seen. 2. At least 2 nonobstructing left renal calculi measuring up to 5 mm. 3. No hydronephrosis of the bilateral kidneys. No right renal calculi.
== END | disposition home or self-care (01) ==
LOC: RADUSWWP 15:04
PROVIDERS: ATTEND Urology
DX: N21.1 Calculus in urethra (principal); N20.0 Calculus of kidney
CPT/HCPCS: 74018; 76770

== ENCOUNTER 2022-01-15 08:08 | Emergency (ER) | payer OTHER ==
[2022-01-15 08:18] VITALS: TEMP 98.4
[2022-01-15] MEDS ORDERED: SODIUM CHLORIDE 0.9% 1,000 ML IV STA (08:35)
[2022-01-15] MEDS ORDERED: MORPHINE SULFATE 2 MG/ML SYRINGE IVP STA (08:35)
[2022-01-15] MEDS ORDERED: KETOROLAC 15 MG/ML 1 ML VIAL IVP STA (08:35)
[2022-01-15] MEDS ORDERED: ONDANSETRON 4 MG/2 ML VIAL IVP STA ×2 (08:35→10:44)
--- NOTE | 2022-01-15 08:40 | ED ---
Abdominal Pain HPI - General Chief Complaint: Abdominal Pain Stated Complaint: Kidney stone Time Seen by Provider: 01/15/22 08:18 Source: patient, RN notes reviewed Mode of arrival: ambulatory Limitations: no limitations - History of Present Illness Initial Comments: This is a 36-year-old female who presents to the emergency department with left flank pain and left lower abdominal pain. Patient states that the left flank pain began approximately one week ago. She had been trying to manage her pain with [id number] ibuprofen and Tylenol. However, last night the pain became unbearable and she has had uncontrollable nausea and vomiting. She does have a history of kidney stones. The kidney stone she had last year she was able to pass on her own, however prior to that she did require a lithotripsy which was done by Dr. Figueroa. Denies any sore throat, cough, dyspnea, chest pain, palpitations, diarrhea, or headaches. MD Complaint: abdominal pain, flank pain Location: LLQ, L flank Consistency: constant Improves With: nothing Associated Symptoms: nausea, vomiting, fever, chills - Related Data Home Medications Medication Instructions Recorded Confirmed Ibuprofen [Motrin Ib] 800 mg PO Q8H PRN 11/11/20 11/11/20 norethindrone-e.estradioL-iron 1 tab PO HS 11/11/20 11/11/20 [Junel Fe 1.5 mg-30 Mcg Tablet] Previous Rx's Medication Instructions Recorded Cephalexin [Keflex] 500 mg PO Q6HR 7 Days #28 cap 11/11/20 Ketorolac [Toradol] 10 mg PO Q8HR PRN 3 Days #9 tab 11/11/20 Ondansetron Odt [Zofran Odt] 4 mg PO Q8HR PRN 3 Days #9 tab 11/11/20 Metoclopramide [Reglan] 5 mg PO Q8H PRN #20 tab 01/15/22 Ondansetron [Zofran] 4 mg PO Q8HR PRN #20 tab 01/15/22 Tamsulosin [Flomax] 0.4 mg PO DAILY #10 cap 01/15/22 levoFLOXacin 750 mg PO DAILY 5 Days #5 tab 01/15/22 traMADol HCL 50 mg PO Q6H PRN #12 tablet 01/15/22 Allergies Allergy/AdvReac Type Severity Reaction Status Date / Time No Known Allergies Allergy Verified 01/15/22 08:18 Review of Systems ROS Statement: Those systems with pertinent positive or pertinent negative responses have been documented in the HPI. ROS Other: All systems not noted in ROS Statement are negative. Past Medical History Past Medical History: Supraventricular Tachycardia (SVT) Additional Past Medical History / Comment(s): Kidney stones w History of Any Multi-Drug Resistant Organisms: None Reported Past Surgical History: No Surgical Hx Reported Past Anesthesia/Blood Transfusion Reactions: No Reported Reaction Past Psychological History: No Psychological Hx Reported Smoking Status: Current some day smoker Past Alcohol Use History: None Reported Past Drug Use History: None Reported - Past Family History Mother Family Medical History: Hypertension Father Family Medical History: Hypertension General Exam Limitations: no limitations General appearance: alert, in distress Head exam: Present: atraumatic, normocephalic, normal inspection Respiratory exam: Present: normal lung sounds bilaterally. Absent: respiratory distress, wheezes, rales, rhonchi, stridor Cardiovascular Exam: Present: regular rate, normal rhythm, normal heart sounds. Absent: systolic murmur, diastolic murmur, rubs, gallop, clicks GI/Abdominal exam: Present: soft, tenderness (LLQ), normal bowel sounds. Absent: distended, guarding, rebound, rigid Back exam: Present: CVA tenderness (L). Absent: CVA tenderness (R) Neurological exam: Present: alert, oriented X3, CN II-XII intact Psychiatric exam: Present: normal affect, normal mood Skin exam: Present: warm, dry, intact, normal color. Absent: rash Course Vital Signs 01/15/22 01/15/22 08:16 11:42 Temperature 98.4 F Pulse Rate 66 75 Respiratory 22 18 Rate Blood Pressure 175/88 152/95 O2 Sat by Pulse 100 100 Oximetry Medical Decision Making - Medical Decision Making This is a 36-year-old female who presents to the emergency department with left flank pain, left lower abdominal pain, nausea, and vomiting. Lab work reveals an elevated white blood cell count. CT of the abdomen and pelvis was obtained, revealing a 13 mm stone at the UVJ with mild to moderate hydronephrosis. The size of this makes it unlikely for her to pass it on her own. Her symptoms were able to be controlled in the emergency department. Prescriptions for Zofran, Reglan, tramadol, Flomax, and levofloxacin sent to the patient's pharmacy. Also instructed her to continue taking her ibuprofen 800 mg at home as well as Tylenol. She is instructed to contact urology first thing tomorrow morning regarding his kidney stone for possible lithotripsy. Return precautions reviewed in depth, the patient is instructed to return to the emergency department with any new, worsening, or concerning symptoms. Patient verbalized understanding. This case was discussed in detail with the attending ED physician. Presentation, findings, and treatment plan discussed in detail as well. - Lab Data Result diagrams: 01/15/22 08:49 01/15/22 08:49 Lab Results 01/15/22 01/15/22 01/15/22 Range/Units 08:49 08:49 08:49 WBC 15.0 H (3.8-10.6) k/uL RBC 4.17 (3.80-5.40) m/uL Hgb 13.4 (11.4-16.0) gm/dL Hct 38.5 (34.0-46.0) % MCV 92.4 (80.0-100.0) fL MCH 32.2 (25.0-35.0) pg MCHC 34.8 (31.0-37.0) g/dL RDW 12.8 (11.5-15.5) % Plt Count 347 (150-450) k/uL MPV 7.9 Neutrophils % 88 % Lymphocytes % 9 % Monocytes % 1 % Eosinophils % 1 % Basophils % 0 % Neutrophils # 13.2 H (1.3-7.7) k/uL Lymphocytes # 1.3 (1.0-4.8) k/uL Monocytes # 0.1 (0-1.0) k/uL Eosinophils # 0.2 (0-0.7) k/uL Basophils # 0.0 (0-0.2) k/uL Sodium (137-145) mmol/L Potassium (3.5-5.1) mmol/L Chloride (98-107) mmol/L Carbon Dioxide (22-30) mmol/L Anion Gap mmol/L BUN (7-17) mg/dL Creatinine (0.52-1.04) mg/dL Est GFR (CKD-EPI)AfAm (>60 ml/min/1.73 sqM) Est GFR (CKD-EPI)NonAf (>60 ml/min/1.73 sqM) Glucose (74-99) mg/dL Calcium (8.4-10.2) mg/dL Total Bilirubin (0.2-1.3) mg/dL AST (14-36) U/L ALT (4-34) U/L Alkaline Phosphatase (38-126) U/L Total Protein (6.3-8.2) g/dL Albumin (3.5-5.0) g/dL Amylase (30-110) U/L Lipase (23-300) U/L Urine Color Yellow Urine Appearance Turbid H (Clear) Urine pH 5.0 (5.0-8.0) Ur Specific [place] 1.022 (1.001-1.035) Urine Protein Trace H (Negative) Urine Glucose (UA) Negative (Negative) Urine Ketones 1+ H (Negative) Urine Blood Moderate H (Negative) Urine Nitrite Negative (Negative) Urine Bilirubin Negative (Negative) Urine Urobilinogen <2.0 (<2.0) mg/dL Ur Leukocyte Esterase Small H (Negative) Urine RBC 42 H (0-5) /hpf Urine WBC 9 H (0-5) /hpf Ur Squamous Epith Cells 4 (0-4) /hpf Uric Acid Crystals Few H (None) /hpf Amorphous Sediment Moderate H (None) /hpf Urine Mucus Few H (None) /hpf Urine HCG, Qual Not Detected (Not Detectd) 01/15/22 Range/Units 08:49 WBC (3.8-10.6) k/uL RBC (3.80-5.40) m/uL Hgb (11.4-16.0) gm/dL Hct (34.0-46.0) % MCV (80.0-100.0) fL MCH (25.0-35.0) pg MCHC (31.0-37.0) g/dL RDW (11.5-15.5) % Plt Count (150-450) k/uL MPV Neutrophils % % Lymphocytes % % Monocytes % % Eosinophils % % Basophils % % Neutrophils # (1.3-7.7) k/uL Lymphocytes # (1.0-4.8) k/uL Monocytes # (0-1.0) k/uL Eosinophils # (0-0.7) k/uL Basophils # (0-0.2) k/uL Sodium 136 L (137-145) mmol/L Potassium 4.0 (3.5-5.1) mmol/L Chloride 105 (98-107) mmol/L Carbon Dioxide 15 L (22-30) mmol/L Anion Gap 16 mmol/L BUN 14 (7-17) mg/dL Creatinine 0.62 (0.52-1.04) mg/dL Est GFR (CKD-EPI)AfAm >90 (>60 ml/min/1.73 sqM) Est GFR (CKD-EPI)NonAf >90 (>60 ml/min/1.73 sqM) Glucose 127 H (74-99) mg/dL Calcium 9.3 (8.4-10.2) mg/dL Total Bilirubin 0.2 (0.2-1.3) mg/dL AST 76 H (14-36) U/L ALT 77 H (4-34) U/L Alkaline Phosphatase 57 (38-126) U/L Total Protein 7.7 (6.3-8.2) g/dL Albumin 4.6 (3.5-5.0) g/dL Amylase 34 (30-110) U/L Lipase 60 (23-300) U/L Urine Color Urine Appearance (Clear) Urine pH (5.0-8.0) Ur Specific [place] (1.001-1.035) Urine Protein (Negative) Urine Glucose (UA) (Negative) Urine Ketones (Negative) Urine Blood (Negative) Urine Nitrite (Negative) Urine Bilirubin (Negative) Urine Urobilinogen (<2.0) mg/dL Ur Leukocyte Esterase (Negative) Urine RBC (0-5) /hpf Urine WBC (0-5) /hpf Ur Squamous Epith Cells (0-4) /hpf Uric Acid Crystals (None) /hpf Amorphous Sediment (None) /hpf Urine Mucus (None) /hpf Urine HCG, Qual (Not Detectd) - Radiology Data Radiology results: report reviewed, image reviewed Disposition Clinical Impression: Ureteral calculus, left, Hydronephrosis Disposition: HOME SELF-CARE Instructions (If sedation given, give patient instructions): Kidney Stones (ED), Renal Colic (ED) Additional Instructions: Return to the emergency department with any new, worsening, or concerning symptoms. You can take the Zofran and/or Reglan every 8 hours as needed for nausea/vomiting. Take the Flomax once daily with the largest meal of the day. Take the levofloxacin once daily for 5 days. Take your ibuprofen for the pain a nd use the tramadol sparingly when your pain is the most severe. Make sure you contact urology tomorrow and let them know that you have a 13 mm kidney stone that will likely need removal. Prescriptions: Tamsulosin [Flomax] 0.4 mg PO DAILY #10 cap levoFLOXacin 750 mg PO DAILY 5 Days #5 tab Metoclopramide [Reglan] 5 mg PO Q8H PRN #20 tab PRN Reason: Nausea And Vomiting traMADol HCL 50 mg PO Q6H PRN #12 tablet PRN Reason: Pain Ondansetron [Zofran] 4 mg PO Q8HR PRN #20 tab PRN Reason: Nausea And Vomiting Is patient prescribed a controlled substance at d/c from ED?: Yes When asked, does pt state using other controlled substances?: No If prescribed controlled substance>3 days was MAPS reviewed?: Prescribed <3 Days Referrals: Ismael Hook MD [Primary Care Provider] - 1-2 days Angel Figueroa MD [Family Provider] - 1-2 days
[2022-01-15 09:11] LABS: Basophils % (A) 0 %; Eosinophils # (A) 0.2 k/uL (0-0.7); Eosinophils % (A) 1 %; HCT 38.5 % (34.0-46.0); HGB 13.4 gm/dL (11.4-16.0); Lymphocytes # (A) 1.3 k/uL (1.0-4.8); Lymphocytes % (A) 9 %; MCH 32.2 pg (25.0-35.0); MCHC 34.8 g/dL (31.0-37.0); MCV 92.4 fL (80.0-100.0); Mean Platelet Volume 7.9; Monocytes # (A) 0.1 k/uL (0-1.0); Monocytes % (A) 1 %; Neutrophils # (A) 13.2 k/uL (1.3-7.7); Neutrophils % (A) 88 %; Platelet Count 347 k/uL (150-450); RBC 4.17 m/uL (3.80-5.40); RDW 12.8 % (11.5-15.5)
[2022-01-15 09:26] LABS: ALT 77 U/L (4-34); AST 76 U/L (14-36); African American GFR (CKD) >90 (>60 ml/min/1.73 sqM); Albumin 4.6 g/dL (3.5-5.0); Alkaline Phosphatase 57 U/L (38-126); Amylase 34 U/L (30-110); Anion Gap 16 mmol/L; Blood Urea Nitrogen 14 mg/dL (7-17); Calcium 9.3 mg/dL (8.4-10.2); Carbon Dioxide 15 mmol/L (22-30); Chloride 105 mmol/L (98-107); Glucose 127 mg/dL (74-99); Lipase 60 U/L (23-300); Non-African American GFR(CKD) >90 (>60 ml/min/1.73 sqM); Sodium 136 mmol/L (137-145); Total Bilirubin 0.2 mg/dL (0.2-1.3); Total Protein 7.7 g/dL (6.3-8.2)
[2022-01-15 09:33] LABS: Amorphous Sediment,Urine Moderate /hpf; Appearance,Urine Turbid (Clear); Bilirubin,Urine Negative (Negative); Blood,Urine Moderate (Negative); Color,Urine Yellow; Glucose,Urine (UA) Negative (Negative); Ketones,Urine 1+ (Negative); Leukocyte Esterase,Urine Small (Negative); Mucus,Urine Few /hpf; Nitrite,Urine Negative (Negative); Protein,Urine Trace (Negative); RBC,Urine 42 /hpf (0-5); Specific Gravity,Urine 1.022 (1.001-1.035); Squamous Epithelial Cell,Urine 4 /hpf (0-4); Uric Acid Crystals,Urine Few /hpf; Urobilinogen,Urine <2.0 mg/dL (<2.0); WBC,Urine 9 /hpf (0-5)
--- NOTE | 2022-01-15 11:07 | CT ---
EXAMINATION TYPE: CT abdomen pelvis w con DATE OF EXAM: 01/15/2022 HISTORY: Renal stones with new left lower quadrant pain. CT DLP: 2176.70mGycm Automated Exposure Control for Dose Reduction was Utilized. CONTRAST: CT scan of the abdomen and pelvis is performed without oral but with IV Contrast, patient injected wi th 100 ml mL of Isovue 370. COMPARISON: Most recent CT November 11, 2020 FINDINGS: LUNG BASES: No significant abnormality is appreciated. LIVER/GB: Visualized liver heterogeneously hypodense fatty infiltration. PANCREAS: No significant abnormality is seen. SPLEEN: No significant abnormality is seen. ADRENALS: No significant abnormality is seen. KIDNEYS: No right-sided nephrolithiasis. Left kidney has lower pole 1.7 cm calyceal stone coronal beatrice ge 63. There is an additional 13 mm calculus at UVJ coronal image causing delayed excretion and mild to moderate left-sided hydronephrosis on current exam. No intraluminal calculus in the bladder. BOWEL: Suboptimal evaluation without enteric contrast. No suspicious small or large bowel dilatation. UTERUS/ADNEXA: Anteverted uterus. Ovaries symmetric and normal in size. A few scattered pelvic phlebo liths. LYMPH NODES: No greater than 1cm abdominal or pelvic lymph nodes are appreciated. OSSEOUS STRUCTURES: No significant abnormality is seen. OTHER: No significant additional abnormality is seen. IMPRESSION: There is 13 mm calculus at left UPJ causing [id number] left-sided hydronephrosis an d delayed excretion on current study
[2022-01-15] MEDS ORDERED: HYDROmorphone 0.5 MG/0.5 ML SYRINGE IVP STA (11:11)
[2022-01-15] MEDS ORDERED: METOCLOPRAMIDE 5 MG/ML 2 ML VIAL IVP STA (11:31)
[2022-01-15] MEDS ORDERED: cefTRIAXone IN SWFI 1,000 MG/10 ML SYRINGE IVP STA (11:31)
[2022-01-15 11:43] VITALS: BP 152/95; PULSE 75; RESP 18
== END 2022-01-15 13:44 | disposition home or self-care (01) ==
LOC: EC 08:08
DX: N13.2 Hydronephrosis with renal and ureteral calculous obstruction (principal); F17.200 Nicotine dependence, unspecified, uncomplicated
CPT/HCPCS: 36415; 80053; 82150; 83690; 85025; 81001; 81025; 74177; 99284; 96374; 96375; 96361; 96376; J0696; J2765; J2405; J2270; J1885; J1170; Q9967

== ENCOUNTER 2022-01-16 22:30 | Observation (INO) | payer OTHER ==
[2022-01-17] MEDS ORDERED: ONDANSETRON 4 MG/2 ML VIAL IVP STA (01:48)
[2022-01-17] MEDS ORDERED: KETOROLAC 15 MG/ML 1 ML VIAL IVP STA (01:48)
[2022-01-17] MEDS ORDERED: SODIUM CHLORIDE 0.9% 1,000 ML IV STA (01:48)
[2022-01-17] MEDS ORDERED: HYDROmorphone 0.5 MG/0.5 ML SYRINGE IVP STA (01:48)
[2022-01-17 02:21] LABS: Basophils # (A) 0.1 k/uL (0-0.2); Basophils % (A) 0 %; Eosinophils # (A) 0.3 k/uL (0-0.7); Eosinophils % (A) 2 %; HCT 36.5 % (34.0-46.0); HGB 12.6 gm/dL (11.4-16.0); Lymphocytes % (A) 6 %; MCH 31.6 pg (25.0-35.0); MCHC 34.5 g/dL (31.0-37.0); MCV 91.6 fL (80.0-100.0); Mean Platelet Volume 7.7; Monocytes # (A) 0.6 k/uL (0-1.0); Monocytes % (A) 3 %; Neutrophils # (A) 15.5 k/uL (1.3-7.7); Neutrophils % (A) 89 %; Platelet Count 269 k/uL (150-450); RBC 3.98 m/uL (3.80-5.40); RDW 12.6 % (11.5-15.5); WBC 17.5 k/uL (3.8-10.6)
--- NOTE | 2022-01-17 02:35 | ED ---
General Adult HPI - General Chief complaint: Back Pain/Injury Stated complaint: recheck Time Seen by Provider: 01/17/22 01:29 Source: patient, RN notes reviewed Mode of arrival: ambulatory Limitations: no limitations - History of Present Illness Initial comments: 36-year-old female presents to the emergency department with complaints of ongoing nausea, vomiting, and pain related to a 13 mm kidney stone. Patient states she was seen at this facility on the and prescribed a kidney stone regimen, however is having difficulty tolerating oral intake. States she is getting no relief with the pain medication. Has taken two doses of antibiotic as prescribed. Patient states she did contact her urologist during the day but was unable to make a follow-up appointment. Denies fever, chills, headache, chest pain, difficulty breathing, diarrhea, constipation, hematuria. - Related Data Home Medications Medication Instructions Recorded Confirmed Ibuprofen [Motrin Ib] 800 mg PO Q8H PRN 11/11/20 11/11/20 norethindrone-e.estradioL-iron 1 tab PO HS 11/11/20 11/11/20 [Junel Fe 1.5 mg-30 Mcg Tablet] Previous Rx's Medication Instructions Recorded Cephalexin [Keflex] 500 mg PO Q6HR 7 Days #28 cap 11/11/20 Ketorolac [Toradol] 10 mg PO Q8HR PRN 3 Days #9 tab 11/11/20 Ondansetron Odt [Zofran Odt] 4 mg PO Q8HR PRN 3 Days #9 tab 11/11/20 Metoclopramide [Reglan] 5 mg PO Q8H PRN #20 tab 01/15/22 Ondansetron [Zofran] 4 mg PO Q8HR PRN #20 tab 01/15/22 Tamsulosin [Flomax] 0.4 mg PO DAILY #10 cap 01/15/22 levoFLOXacin 750 mg PO DAILY 5 Days #5 tab 01/15/22 traMADol HCL 50 mg PO Q6H PRN #12 tablet 01/15/22 Allergies Allergy/AdvReac Type Severity Reaction Status Date / Time No Known Allergies Allergy Verified 01/16/22 22:39 Review of Systems ROS Statement: Those systems with pertinent positive or pertinent negative responses have been documented in the HPI. ROS Other: All systems not noted in ROS Statement are negative. Past Medical History Past Medical History: Supraventricular Tachycardia (SVT) Additional Past Medical History / Comment(s): Kidney stones w History of Any Multi-Drug Resistant Organisms: None Reported Past Surgical History: No Surgical Hx Reported Past Anesthesia/Blood Transfusion Reactions: No Reported Reaction Past Psychological History: No Psychological Hx Reported Smoking Status: Former smoker Past Alcohol Use History: Occasional Past Drug Use History: Marijuana - Past Family History Mother Family Medical History: Hypertension Father Family Medical History: Hypertension General Exam Limitations: no limitations General appearance: alert, in distress (Well-developed, well-nourished female in moderate distress due to pain. Initial temperature 98.3, pulse 84, respirations 18, blood pressure 170/94, pulse ox 97% on room air.) Eye exam: Present: normal appearance. Absent: scleral icterus, conjunctival injection Respiratory exam: Present: normal lung sounds bilaterally. Absent: respiratory distress, wheezes, rales, rhonchi, stridor Cardiovascular Exam: Present: regular rate, normal rhythm, normal heart sounds. Absent: systolic murmur, diastolic murmur, rubs, gallop, clicks GI/Abdominal exam: Present: soft, guarding (guarding of the left side), normal bowel sounds. Absent: distended, tenderness, rebound, rigid Back exam: Present: CVA tenderness (L) Neurological exam: Present: alert, oriented X3, normal gait Psychiatric exam: Present: anxious Skin exam: Present: warm, dry, intact, normal color. Absent: rash Course Vital Signs 01/16/22 01/17/22 22:36 02:38 Temperature 98.3 F Pulse Rate 84 86 Respiratory 18 18 Rate Blood Pressure 170/94 176/97 O2 Sat by Pulse 97 Oximetry - Reevaluation(s) Reevaluation #1: 01/17/22 03:00 I did speak with Dr. Figueroa who agrees to accept this patient. She will be NPO and is made aware of that. Reports pain level is improved and nausea is tolerable. Medical Decision Making - Medical Decision Making 36-year-old female with a past medical history of renal calculi presents to the emergency department for evaluation of intractable nausea, vomiting, and pain. Patient states she has a known 13 mm kidney stone on the left side. Upon exam, patient is initially ill-appearing with multiple episodes of vomiting and inability to find a position of comfort. She is anxious and restless stating that she had taken her medications as prescribed without relief. Patient was given IV fluids, pain and nausea medicines with some improvement. Laboratory studies were obtained showing leukocytosis; her creatinine is elevated as well. I did speak with Dr. Figueroa who agrees to admit this patient to the hospital. She will be NPO and is made aware of this. Attending: Deloris. - Lab Data Result diagrams: 01/17/22 02:11 01/17/22 02:11 Lab Results 01/17/22 01/17/22 Range/Units 02:11 02:11 WBC 17.5 H (3.8-10.6) k/uL RBC 3.98 (3.80-5.40) m/uL Hgb 12.6 (11.4-16.0) gm/dL Hct 36.5 (34.0-46.0) % MCV 91.6 (80.0-100.0) fL MCH 31.6 (25.0-35.0) pg MCHC 34.5 (31.0-37.0) g/dL RDW 12.6 (11.5-15.5) % Plt Count 269 (150-450) k/uL MPV 7.7 Neutrophils % 89 % Lymphocytes % 6 % Monocytes % 3 % Eosinophils % 2 % Basophils % 0 % Neutrophils # 15.5 H (1.3-7.7) k/uL Lymphocytes # 1.0 (1.0-4.8) k/uL Monocytes # 0.6 (0-1.0) k/uL Eosinophils # 0.3 (0-0.7) k/uL Basophils # 0.1 (0-0.2) k/uL Sodium 136 L (137-145) mmol/L Potassium 3.6 (3.5-5.1) mmol/L Chloride 105 (98-107) mmol/L Carbon Dioxide 16 L (22-30) mmol/L Anion Gap 15 mmol/L BUN 16 (7-17) mg/dL Creatinine 1.27 H (0.52-1.04) mg/dL Est GFR (CKD-EPI)AfAm 63 (>60 ml/min/1.73 sqM) Est GFR (CKD-EPI)NonAf 55 (>60 ml/min/1.73 sqM) Glucose 132 H (74-99) mg/dL Calcium 9.2 (8.4-10.2) mg/dL Total Bilirubin 0.5 (0.2-1.3) mg/dL AST 82 H (14-36) U/L ALT 78 H (4-34) U/L Alkaline Phosphatase 50 (38-126) U/L Total Protein 7.6 (6.3-8.2) g/dL Albumin 4.5 (3.5-5.0) g/dL Disposition Clinical Impression: Intractable nausea and vomiting, Renal calculus Disposition: ADMITTED IP TO THIS [facility] Condition: Serious Referrals: Ismael Hook MD [Primary Care Provider] - 1-2 days Decision Date: 01/17/22 Decision Time: 03:08
[2022-01-17 02:36] LABS: Albumin 4.5 g/dL (3.5-5.0); Calcium 9.2 mg/dL (8.4-10.2); Potassium 3.6 mmol/L (3.5-5.1); Total Bilirubin 0.5 mg/dL (0.2-1.3); Total Protein 7.6 g/dL (6.3-8.2)
[2022-01-17] MEDS ORDERED: KETOROLAC 15 MG/ML 1 ML VIAL IVP PRN (03:09)
[2022-01-17] MEDS ORDERED: NALOXONE 0.4 MG/ML 1 ML VIAL IV PRN (03:09)
[2022-01-17] MEDS ORDERED: ACETAMINOPHEN TAB 325 MG TAB PO PRN (03:09)
[2022-01-17] MEDS ORDERED: ONDANSETRON 4 MG/2 ML VIAL IVP PRN (03:09)
[2022-01-17] MEDS ORDERED: SODIUM CHLORIDE 0.9% 1,000 ML IV SCH (03:15)
[2022-01-17 04:11] LABS: Appearance,Urine Clear (Clear); Bacteria,Urine Rare /hpf; Bilirubin,Urine Negative (Negative); Blood,Urine Moderate (Negative); Color,Urine Yellow; Glucose,Urine (UA) Negative (Negative); Hyaline Casts,Urine 19 /lpf (0-2); Ketones,Urine 4+ (Negative); Leukocyte Esterase,Urine Negative (Negative); Mucus,Urine Few /hpf; Nitrite,Urine Negative (Negative); PH, Urine 5.5 (5.0-8.0); Protein,Urine Trace (Negative); RBC,Urine 8 /hpf (0-5); Specific Gravity,Urine 1.026 (1.001-1.035); Squamous Epithelial Cell,Urine 2 /hpf (0-4); Urobilinogen,Urine <2.0 mg/dL (<2.0); WBC,Urine 4 /hpf (0-5)
[2022-01-17] MEDS: HYDROmorphone 0.5 MG/0.5 ML SYRINGE IVP PRN ×2 (06:33→10:47)
--- NOTE | 2022-01-17 09:19 | P.GSHP ---
History of Present Illness H&P Date: 01/17/22 Chief Complaint: Intractable left flank pain The patient is a 36-year-old white female with a history of urolithiasis. She underwent ureteroscopic removal of a left proximal ureteral calculus in February 2019. She now presents with left renal colic. Her symptoms are intractable, consisting of flank pain, nausea, and vomiting. She is thus admitted. CT scan shows a 13 mm left UPJ calculus with mild left hydronephrosis. Additionally, a 17 mm left lower pole renal calculus is seen. - Constitutional Constitutional: Denies chills, Denies fever - Gastrointestinal Gastrointestinal: Reports nausea, Reports vomiting - Genitourinary (Female) Genitourinary: Reports flank pain, Reports kidney stones, Denies hematuria Past Medical History Past Medical History: Supraventricular Tachycardia (SVT) Additional Past Medical History / Comment(s): Kidney stones w History of Any Multi-Drug Resistant Organisms: None Reported Additional Past Surgical History / Comment(s): Left ureteroscopy with laser lithotripsy in 2019 Past Anesthesia/Blood Transfusion Reactions: No Reported Reaction Past Psychological History: No Psychological Hx Reported Smoking Status: Former smoker Past Alcohol Use History: Occasional Past Drug Use History: Marijuana - Past Family History Mother Family Medical History: Hypertension Father Family Medical History: Hypertension Medications and Allergies Home Medications Medication Instructions Recorded Confirmed Type norethindrone-e.estradioL-iron 1 tab PO HS 11/11/20 01/17/22 History [Junel Fe 1.5 mg-30 Mcg Tablet] Metoclopramide [Reglan] 5 mg PO Q8H PRN #20 tab 01/15/22 01/17/22 Rx Ondansetron [Zofran] 4 mg PO Q8HR PRN #20 tab 01/15/22 01/17/22 Rx Tamsulosin [Flomax] 0.4 mg PO DAILY #10 cap 01/15/22 01/17/22 Rx levoFLOXacin 750 mg PO DAILY 5 Days #5 tab 01/15/22 01/17/22 Rx traMADol HCL 50 mg PO Q6H PRN #12 tablet 01/15/22 01/17/22 Rx Allergies Allergy/AdvReac Type Severity Reaction Status Date / Time No Known Allergies Allergy Verified 01/17/22 07:54 Surgical - Exam Vital Signs Temp Pulse Resp BP Pulse Ox 98.3 F 84 18 170/94 97 01/16/22 22:36 01/16/22 22:36 01/16/22 22:36 01/16/22 22:36 01/16/22 22:36 - General well developed, well nourished, moderate distress - Neck no masses, trachea midline - Respiratory normal respiratory effort - Abdomen Abdomen: soft, tender (Mild left CVA tenderness), no guarding, no rigid, no rebound - Psychiatric oriented to time, oriented to person, oriented to place, speech is normal, memory intact Results - Labs 01/17/22 02:11 01/17/22 02:11 Abnormal Lab Results - Last 24 Hours (Table) 01/17/22 01/17/22 01/17/22 Range/Units 02:11 02:11 03:55 WBC 17.5 H (3.8-10.6) k/uL Neutrophils # 15.5 H (1.3-7.7) k/uL Sodium 136 L (137-145) mmol/L Carbon Dioxide 16 L (22-30) mmol/L Creatinine 1.27 H (0.52-1.04) mg/dL Glucose 132 H (74-99) mg/dL AST 82 H (14-36) U/L ALT 78 H (4-34) U/L Urine Protein Trace H (Negative) Urine Ketones 4+ H (Negative) Urine Blood Moderate H (Negative) Urine RBC 8 H (0-5) /hpf Urine Bacteria Rare H (None) /hpf Hyaline Casts 19 H (0-2) /lpf Urine Mucus Few H (None) /hpf Diabetes panel 01/17/22 Range/Units 02:11 Sodium 136 L (137-145) mmol/L Potassium 3.6 (3.5-5.1) mmol/L Chloride 105 (98-107) mmol/L Carbon Dioxide 16 L (22-30) mmol/L BUN 16 (7-17) mg/dL Creatinine 1.27 H (0.52-1.04) mg/dL Glucose 132 H (74-99) mg/dL Calcium 9.2 (8.4-10.2) mg/dL AST 82 H (14-36) U/L ALT 78 H (4-34) U/L Alkaline Phosphatase 50 (38-126) U/L Total Protein 7.6 (6.3-8.2) g/dL Albumin 4.5 (3.5-5.0) g/dL Calcium panel 01/17/22 Range/Units 02:11 Calcium 9.2 (8.4-10.2) mg/dL Albumin 4.5 (3.5-5.0) g/dL Pituitary panel 01/17/22 Range/Units 02:11 Sodium 136 L (137-145) mmol/L Potassium 3.6 (3.5-5.1) mmol/L Chloride 105 (98-107) mmol/L Carbon Dioxide 16 L (22-30) mmol/L BUN 16 (7-17) mg/dL Creatinine 1.27 H (0.52-1.04) mg/dL Glucose 132 H (74-99) mg/dL Calcium 9.2 (8.4-10.2) mg/dL Adrenal panel 01/17/22 Range/Units 02:11 Sodium 136 L (137-145) mmol/L Potassium 3.6 (3.5-5.1) mmol/L Chloride 105 (98-107) mmol/L Carbon Dioxide 16 L (22-30) mmol/L BUN 16 (7-17) mg/dL Creatinine 1.27 H (0.52-1.04) mg/dL Glucose 132 H (74-99) mg/dL Calcium 9.2 (8.4-10.2) mg/dL Total Bilirubin 0.5 (0.2-1.3) mg/dL AST 82 H (14-36) U/L ALT 78 H (4-34) U/L Alkaline Phosphatase 50 (38-126) U/L Total Protein 7.6 (6.3-8.2) g/dL Albumin 4.5 (3.5-5.0) g/dL - Imaging CT scan - abdomen: report reviewed, image reviewed Assessment and Plan (1) Calculus of ureter Current Visit: No Status: Acute Code(s): N20.1 - CALCULUS OF URETER SNOMED Code(s): 13786291 (2) Hydronephrosis with renal and ureteral calculus obstruction Current Visit: No Status: Acute Code(s): N13.2 - HYDRONEPHROSIS WITH RENAL AND URETERAL CALCULOUS OBSTRUCTION SNOMED Code(s): 595952479 (3) Nephrolithiasis Current Visit: Yes Status: Acute Code(s): N20.0 - CALCULUS OF KIDNEY SNOMED Code(s): 76730901 Plan: The patient will undergo cystoscopy with left ureteral stent insertion later today to relieve her ureteral obstruction. This should provide significant symptomatic relief. The rationale for this was reviewed, as were risks which include anesthesia, bleeding, infection, and ureteral injury. I had a lengthy discussion with the patient regarding management of her kidney stones. Given her stone burden, ESWL is a poor option. We discussed the pros and cons of staged ureteroscopic procedures versus a percutaneous nephrolithotomy (PCNL). She wishes to undergo the latter, and arrangements will be made for this to be scheduled upon discharge. I will hopeful she may be discharged home later today. Time with Patient: Greater than 30
[2022-01-17] MEDS ORDERED: METOCLOPRAMIDE 5 MG/ML 2 ML VIAL IVP SCH (12:00)
[2022-01-17] MEDS ORDERED: LACTATED RINGERS 1,000 ML IV ONE (13:04)
[2022-01-17] MEDS ORDERED: ONDANSETRON 4 MG/2 ML VIAL IVP ONE (13:21)
[2022-01-17] MEDS ORDERED: DEXAMETHASONE SOD PHOSPHATE 4 MG/ML 1 ML VIAL IV ONE (13:22)
[2022-01-17] MEDS ORDERED: SUCCINYLCHOLINE CHLORIDE 200 MG/10 ML VIAL IV ONE (13:45)
[2022-01-17] MEDS ORDERED: KETOROLAC 15 MG/ML 1 ML VIAL ONE (13:45)
[2022-01-17] MEDS ORDERED: PROPOFOL 10 MG/ML 20 ML VIAL IV ONE (13:45)
[2022-01-17] MEDS ORDERED: LIDOCAINE 2% INJ 20 MG/ML (2 ML VIAL) ONE (13:45)
[2022-01-17] MEDS ORDERED: fentaNYL (PF) 50 MCG/ML 2 ML AMP ONE (13:45)
[2022-01-17] MEDS ORDERED: MIDAZOLAM 2 MG/2 ML VIAL ONE (13:45)
[2022-01-17] MEDS ORDERED: ONDANSETRON 4 MG TAB PO PRN (14:26)
[2022-01-17] MEDS ORDERED: traMADol 50 MG TAB PO PRN (14:26)
[2022-01-17] MEDS ORDERED: METOCLOPRAMIDE 5 MG TAB PO PRN (14:26)
--- NOTE | 2022-01-17 14:31 | P.OP ---
Date of Procedure: 01/17/22 Preoperative Diagnosis: Left hydronephrosis secondary to left UPJ calculus Postoperative Diagnosis: Same Procedure(s) Performed: Cystoscopy, left ureteral stent insertion Anesthesia: ANJANAA Surgeon: Angel Figueroa Estimated Blood Loss (ml): 0 IV fluids (ml): 300 Pathology: none sent Condition: stable Disposition: PACU Indications for Procedure: The patient is a 36-year-old white female with a history of urolithiasis. She underwent ureteroscopic removal of a left proximal ureteral calculus in February 2019. She now presents with left renal colic. Her symptoms are intractable, consisting of flank pain, nausea, and vomiting. She is thus admitted. CT scan shows a 13 mm left UPJ calculus with mild left hydronephrosis. Additionally, a 17 mm left lower pole renal calculus is seen. Operative Findings: Successful left ureteral stent insertion. Description of Procedure: The patient was taken to the operating room and placed in the dorsolithotomy position, with legs supported in Omari stirrups. The external genitalia was prepped and draped sterilely. The 30 lens was used to introduce the 22-Bruneian Stortz cystoscopic sheath through the urethra and into the bladder under direct vision. The bladder was examined in its entirety. Both ureteral orifices were of normal anatomic location and configuration. No tumors or foreign bodies were seen. An angle-tip 0.035 inch Glidewire was passed through the cystoscope. The left ureteral orifice was cannulated, and the Glidewire was slowly advanced up to the renal pelvis. A 24 cm, 6-Bruneian double-J ureteral stent was placed over the wire. Proper stent positioning was verified fluoroscopically and endoscopically. There was evidence of a "hydronephrotic connor", as clear urine drained through the stent. The bladder was emptied and the cystoscope removed. The patient tolerated the procedure well was taken to the recovery room in stable condition.
--- NOTE | 2022-01-17 14:39 | FL ---
Fluoroscopy History: Cysto for Left Ureteral Stent Left ureteral stent placement. 4 sec fl. 1 image sent.
[2022-01-17 14:42] VITALS: TEMP 97.8
[2022-01-17 15:41] VITALS: RESP 16
[2022-01-17] MEDS ORDERED: hydrALAZINE HCL 20 MG/ML 1 ML VIAL IVP ONE (15:41)
[2022-01-17 16:32] VITALS: BP 145/96; PULSE 68
[2022-01-17] MEDS ORDERED: NORETHINDRONE E ESTRADIOL IRON PO SCH (21:00)
[2022-01-18] MEDS ORDERED: TAMSULOSIN 0.4 MG CAP.ER.24H PO SCH (09:00)
== END 2022-01-17 16:51 | disposition home or self-care (01) ==
LOC: EC 22:30 → INTOOBSV 01-17 03:54 → 5NMEDONC 01-17 03:54 → 2ORMAIN 01-17 13:23 → 5NMEDONC 01-17 13:28 → UNDODISIN 01-17 16:52
PROVIDERS: ADMIT Urology; ATTEND Urology
PROC: 0T778DZ Dilation of Left Ureter with Intraluminal Device, Via Natural or Artificial Opening Endoscopic (ICD-10-PCS; principal; 2022-01-17 08:45)
DX: N13.2 Hydronephrosis with renal and ureteral calculous obstruction (principal); I47.1 Supraventricular tachycardia; Z79.3 Long term (current) use of hormonal contraceptives; Z87.442 Personal history of urinary calculi; Z87.891 Personal history of nicotine dependence; Z98.890 Other specified postprocedural states; Z82.49 Family history of ischemic heart disease and other diseases of the circulatory system
CPT/HCPCS: 96376 ×2; 96361; 96374 ×2; 96375 ×2; 99284 ×2; 36415 ×2; 81025 ×3; 80053 ×2; 82150; 83690; 85025 ×2; 81001 ×2; 74177; 52332; G0378; C2625; C1769; J2250; J0330; J0360; J1100; J2765 ×2; J2405 ×2; J0696; J3010; J2270; J1885 ×2; J2704; J1170 ×2; Q9967; J2001; 99285

== ENCOUNTER → 2022-02-07 | Outpatient (CLI) | payer OTHER ==
[2022-02-07 17:50] LABS: Appearance,Urine Cloudy (Clear); Bilirubin,Urine Negative (Negative); Blood,Urine Large (Negative); Color,Urine Yellow (Yellow); Ketones,Urine Negative (Negative); Nitrite,Urine Negative (Negative); Specific Gravity,Urine 1.014 (1.001-1.030); Urobilinogen,Urine 0.2 (0.2,1.0)
[2022-02-07 17:53] LABS: Bacteria,Urine None Seen /HPF (None Seen)
[2022-02-07 18:10] LABS: Basophils # (A) 0.09 X 10*3/uL (0.00-0.10); Basophils % (A) 0.7 %; Eosinophils # (A) 0.33 X 10*3/uL (0.04-0.35); Eosinophils % (A) 2.6 %; HCT 40.6 % (37.2-46.3); HGB 12.9 g/dL (12.0-15.0); Immature Grans, Automated 0.4 %; Lymphocytes # (A) 2.96 X 10*3/uL (0.90-5.00); Lymphocytes % (A) 23.3 %; MCH 29.5 pg (27.0-32.0); MCHC 31.8 g/dL (32.0-37.0); MCV 92.7 fL (80.0-97.0); Mean Platelet Volume 10.9 fL (9.5-12.2); Monocytes # (A) 0.58 X 10*3/uL (0.20-1.00); Monocytes % (A) 4.6 %; NRBC Per 100 WBC 0 /100 WBCS (0.0-0.0); Neutrophils # (A) 8.69 X 10*3/uL (1.80-7.70); Neutrophils % (A) 68.4 %; Platelet Count 341 X 10*3/uL (140-440); RBC 4.38 X 10*6/uL (4.10-5.20); RDW 12.2 % (11.5-14.5)
[2022-02-07 18:26] LABS: African American GFR (CKD) 130.1 (60.0-200.0); Anion Gap 12.5 mmol/L (10.00-18.00); BUN/Creat Ratio 16.57 Ratio (12.00-20.00); Blood Urea Nitrogen 11.6 mg/dL (9.0-27.0); Calcium 9.1 mg/dL (8.7-10.3); Carbon Dioxide 20.5 mmol/L (20.0-27.5); Non-African American GFR(CKD) 112.3 (60.0-200.0); Potassium 4.6 mmol/L (3.5-5.5)
== END | disposition home or self-care (01) ==
LOC: LABPAT 11:45
PROVIDERS: ATTEND Urology
DX: Z01.812 Encounter for preprocedural laboratory examination (principal); N20.0 Calculus of kidney
CPT/HCPCS: 80048; 81001; 85025; 87086

== ENCOUNTER 2022-03-08 07:26 | Day surgery (SDC) | payer OTHER ==
[2022-03-06 15:00] VITALS: BMI 36.8
--- NOTE | 2022-03-07 20:17 | P.GSHP ---
History of Present Illness H&P Date: 03/07/22 36 yo female with a history of stones SHe presented in january with a 14 mm left upj stone and an [address] Figueroa placed a double j catheter. Due to the large stone burden he recommended a left pcnl I saw the patient in consultation and now comes for a left pcnl. - Constitutional Constitutional: Denies chills, Denies fever - EENT Eyes: denies blurred vision, denies pain Ears, nose, mouth and throat: Denies headache, Denies sore throat - Cardiovascular Cardiovascular: Denies chest pain, Denies shortness of breath - Respiratory Respiratory: Denies cough, Denies 7 - Gastrointestinal Gastrointestinal: Denies abdominal pain, Denies diarrhea, Denies nausea, Denies vomiting - Genitourinary (Female) Genitourinary: Denies dysuria, Denies hematuria - Genitourinary (Male) Genitourinary: Denies dysuria, Denies hematuria - Musculoskeletal Musculoskeletal: Denies myalgias - Integumentary Integumentary: Denies pruritus, Denies rash - Neurological Neurological: Denies numbness, Denies weakness - Psychiatric Psychiatric: Denies anxiety, Denies depression - Endocrine Endocrine: Denies fatigue, Denies weight change Past Medical History Past Medical History: Supraventricular Tachycardia (SVT) Additional Past Medical History / Comment(s): Kidney stones w History of Any Multi-Drug Resistant Organisms: None Reported Past Surgical History: Adenoidectomy Additional Past Surgical History / Comment(s): Left ureteroscopy with laser lithotripsy in 2019. cystoscopy with left ureteral stent placed 01/27 Past Anesthesia/Blood Transfusion Reactions: No Reported Reaction Past Psychological History: No Psychological Hx Reported Smoking Status: Former smoker Past Alcohol Use History: Occasional Additional Past Alcohol Use History / Comment(s): Pt started smoking in 2002 and quit in 2014. Past Drug Use History: Marijuana Additional Drug Use History / Comment(s): Past marijuana use. - Past Family History Mother Family Medical History: Cancer, Coronary Artery Disease (CAD), Hypertension Additional Family Medical History / Comment(s): ovarian cancer Father Family Medical History: Coronary Artery Disease (CAD), Hypertension Medications and Allergies Home Medications Medication Instructions Recorded Confirmed Type norethindrone-e.estradioL-iron 1 tab PO DAILY 03/06/22 03/06/22 History [Junel Fe 1.5 mg-30 Mcg Tablet] Allergies Allergy/AdvReac Type Severity Reaction Status Date / Time No Known Allergies Allergy Verified 03/06/22 14:50 Surgical - Exam - General well developed, well nourished, no distress - Eyes normal ocular movement, no icteric - ENT no hearing loss, no congestion - Neck no masses, trachea midline - Respiratory normal respiratory effort, clear to auscultation - Abdomen Abdomen: soft, non tender, no guarding, no rigid, no rebound - Integumentary no rash, no abnormal pigmentation - Neurologic no disoriented, no combative - Psychiatric oriented to time, oriented to person, oriented to place, speech is normal, memory intact Results - Imaging CT scan - abdomen: report reviewed, image reviewed Assessment and Plan Assessment: Impression: Left ureteral and left renal stones, large. Plan. left PCNL
[~2022-03-08 07:26] MED LIST: DEXAMETHASONE SOD PHOSPHATE 4 MG/ML 1 ML VIAL IV ONE; LACTATED RINGERS 1,000 ML IV SCH; LIDOCAINE 1% (10MG/ML) FOR IV START INTRADERMA PRN; ONDANSETRON 4 MG/2 ML VIAL IVP ONE
--- NOTE | 2022-03-08 08:14 | XR ---
EXAMINATION TYPE: XR KUB DATE OF EXAM: 03/08/2022 HISTORY: Pain Comparison: None.Single KUB is submitted for interpretation. Findings: Right renal calculi: None Visualized. Right ureteral calculi: None Visualized. Left renal calculi: None Visualized. Left ureteral calculi: Left ureteral stent appears to be appropriately placed. Pelvic calcifications: Multiple pelvic calcifications likely reflect phlebolith formation. Bowel gas pattern is unremarkable. No free air. No mass effects. IMPRESSION: 1. As above
[2022-03-08] MEDS ORDERED: fentaNYL (PF) 50 MCG/ML 2 ML AMP ONE (08:31)
[2022-03-08] MEDS ORDERED: SUCCINYLCHOLINE CHLORIDE 200 MG/10 ML VIAL IV ONE (08:31)
[2022-03-08] MEDS ORDERED: ROCURONIUM 10 MG/ML (5 ML VIAL) IV ONE (08:31)
[2022-03-08] MEDS ORDERED: NEOSTIGMINE 1 MG/ML 10 ML VIAL ONE (08:31)
[2022-03-08] MEDS ORDERED: PROPOFOL 10 MG/ML 20 ML VIAL IV ONE (08:31)
[2022-03-08] MEDS ORDERED: LIDOCAINE 2% INJ 20 MG/ML (2 ML VIAL) ONE (08:31)
[2022-03-08] MEDS ORDERED: GLYCOPYRROLATE 0.2 MG/ML 2 ML VIAL ONE (08:31)
[2022-03-08] MEDS ORDERED: MIDAZOLAM 2 MG/2 ML VIAL ONE (08:31)
[2022-03-08] MEDS ORDERED: HYDROmorphone (PF) 1 MG/ML ONE (08:31)
[2022-03-08] MEDS ORDERED: IOPAMIDOL-370 50ML BTL MISCELLANE ONE (08:49)
[2022-03-08] MEDS ORDERED: ACETAMINOPHEN TAB 325 MG TAB PO PRN (09:49)
[2022-03-08] MEDS ORDERED: ONDANSETRON 4 MG/2 ML VIAL IVP PRN (09:49)
[2022-03-08] MEDS ORDERED: MAG HYDROX/AL HYDROX/SIMETH 30 ML CUP PO PRN (09:49)
[2022-03-08] MEDS ORDERED: HYDROmorphone PCA 10 MG/50 ML BAG IV PRN (09:50)
[2022-03-08] MEDS ORDERED: NALOXONE 0.4 MG/ML 1 ML VIAL IV PRN (09:50)
--- NOTE | 2022-03-08 09:54 | P.OP ---
Date of Procedure: 03/08/22 Preoperative Diagnosis: Left renal calculi, large greater than 3 cm Postoperative Diagnosis: Same Procedure(s) Performed: Cystoscopy, removal double-J catheter left, placement of occluding balloon catheter left, percutaneous nephrostomy (Dr. lopez), percutaneous nephrostolithotomy with ultrasound, placement of 10 J nephrostomy tube Anesthesia: RAPHAEL Surgeon: Augustine Cabrera Estimated Blood Loss (ml): 50 Pathology: other (Stone) Condition: stable Disposition: PACU Indications for Procedure: The patient is 36. She was seen by Dr. park and had a stent placed for a 17 mm UPJ stone as well as a 14 mm left lower pole stone. She comes for percutaneous nephrostolithotomy Description of Procedure: Patient brought up and suite. Given general anesthesia. Placed lithotomy position with a sterile prep and drape. Cystoscopy Foroblique lens and 21-Fren ch sheath identifies a normal bladder. The double-J catheters identified and pulled to the urethral meatus. An 035 wires passed through that. I then look into the bladder and alongside the wire pass a 5-Lithuanian occluding balloon catheter. The wires removed. The occluding balloon is insufflated The patient's placed in a prone position to care to airways and extremities. Monteiro catheter been previously placed sterilely. Dr. Lopez of radiology performed percutaneous access to the left lower pole calyx. I then dilate the tract to 30-Lithuanian and introduced a working sheath. I removed the blood clot through the working sheath. I identified the lower pole calyceal stone and remove it. I passed the scope into the renal pelvis where the UPJ stone was identified and break it and a small fragments with ultrasound and remove them with grasping forceps. I then looked throughout the collecting system with the flexible scope and see no remaining stone. I looked down the ureter there is no remaining stone. 10 J nephrostomy tube was placed and secured endoscopically and fluoroscopically. It is secured the skin with 2-0 silk. Patient's awake and returned recovery in good condition. Blood loss is 50 mL.
[2022-03-08] MEDS ORDERED: KETOROLAC 15 MG/ML 1 ML VIAL IVP ONE (09:57)
--- NOTE | 2022-03-08 09:58 | FL ---
EXAMINATION TYPE: FL Perc Nephrostomy New Access DATE OF EXAM: 03/08/2022 COMPARISON: NONE HISTORY: Left renal stone Procedure had been discussed with the patient by Dr. Cabrera, risks, benefits, alternatives, were dis cussed and any questions were answered. Informed consent was obtained. The patient was in a semipro ne position prepped and draped on the OR table in the usual sterile fashion. Utilizing a 15 cm lengt h Chiba needle a single pass was made into a lower pole posterior calyx under fluoroscopic guidance. An 0.018 guidewire is passed through the needle and there was placement of a 6-Lithuanian catheter sheat h system. There was conversion to a 0.035 system was performed with passage of a guidewire into the ureter utilizing a directional catheter. A second safety wire was placed. Remaining portion of pro cedure performed by . Approximately 1 minute and 5 seconds of fluoroscopy was provided. IMPRESSION: 1. Successful intraoperative left nephrostomy prior to nephrolithotomy.
[2022-03-08] MEDS: HYDROmorphone 0.5 MG/0.5 ML SYRINGE IVP PRN ×3 (10:20→22:06)
[2022-03-08] MEDS ORDERED: SODIUM CHLORIDE 0.9% 1,000 ML IV ONE (10:57)
[2022-03-08] MEDS: DEXTROSE 5%-0.45% NACL 1,000 ML IV SCH ×2 (14:32→23:19)
[2022-03-08] MEDS: KETOROLAC 15 MG/ML 1 ML VIAL IVP PRN (19:40)
[2022-03-09 02:03] VITALS: TEMP 98.3
[2022-03-09] MEDS: HYDROmorphone 0.5 MG/0.5 ML SYRINGE IVP PRN (03:35)
[2022-03-09] MEDS: KETOROLAC 15 MG/ML 1 ML VIAL IVP PRN (05:12)
[2022-03-09] MEDS: DEXTROSE 5%-0.45% NACL 1,000 ML IV SCH (06:11)
[2022-03-09] MEDS ORDERED: HYDROcodone/APAP 5-325MG 1 EACH TAB PO PRN (07:23)
--- NOTE | 2022-03-09 07:27 | P.DS ---
Providers Attending physician: Augustine Cabrera Primary care physician: [facility] Course: The patient was admitted to the hospital 03/08/2022 for a left percutaneous nephrostolithotomy. She underwent this without difficulty. She did well overnight. Her pain is under control. Her urine is clear. She'll be discharged later today if she tolerates food and oral medication. She'll go home with a nephrostomy tube. She'll be followed in the office next week for nephrostomy tube removal. Instructions of been given. Her condition is good. Patient Condition at Discharge: Good Plan - Discharge Summary Discharge Rx Participant: No New Discharge Prescriptions: New HYDROcodone/APAP 5-325MG [Oxly 5-325] 1 tab PO Q4HR PRN #10 tab PRN Reason: Pain No Action norethindrone-e.estradioL-iron [Junel Fe 1.5 mg-30 Mcg Tablet] 1 tab PO DAILY Discharge Medication List norethindrone-e.estradioL-iron [Junel Fe 1.5 mg-30 Mcg Tablet] 1 tab PO DAILY 03/06/22 [History] HYDROcodone/APAP 5-325MG [Oxly 5-325] 1 tab PO Q4HR PRN #10 tab 03/09/22 [Rx] Follow up Appointment(s)/Referral(s): Angel Figueroa MD [STAFF PHYSICIAN] - 03/14/22 (for nephrostomy tube removal) Discharge Disposition: HOME SELF-CARE
[2022-03-09] MEDS ORDERED: NORETHINDRONE E ESTRADIOL IRON PO SCH (09:00)
[2022-03-09 10:28] VITALS: BP 145/89; PULSE 74; RESP 16
== END 2022-03-09 16:13 | disposition home or self-care (01) ==
LOC: OR 07:26 → 4SSUR 09:38 → OR 03-09 16:13
PROVIDERS: ATTEND Urology
DX: N20.0 Calculus of kidney (principal); Z96.0 Presence of urogenital implants; Z79.3 Long term (current) use of hormonal contraceptives; Z87.891 Personal history of nicotine dependence; Z80.41 Family history of malignant neoplasm of ovary; Z82.49 Family history of ischemic heart disease and other diseases of the circulatory system
CPT/HCPCS: 81025; 82365; 50432; 74018; 50080; C1769 ×4; C2628; C1729 ×2; C1894; J1100; J0690; J2405; J1885; J1170; Q9967

== ENCOUNTER → 2023-02-19 | Outpatient (CLI) | payer OTHER ==
--- NOTE | 2023-02-19 09:52 | US ---
EXAMINATION TYPE: US pelvic complete DATE OF EXAM: 02/19/2023 COMPARISON: CT 01/15/22 CLINICAL INDICATION: Female, 37 years old with history of N93.8 ABNORMAL UTERINE AND VAGINAL BLEEDING ; prolonged, heavy, irregular periods x 1 year, mother recently diagnosed with ovarian cancer age 67 TECHNIQUE: Transabdominal (TA). Transabdominal sonographic images of the pelvis were acquired. Date of LMP: 9:00 EXAM MEASUREMENTS: Uterus: 10.3x3.9x6.1 cm Endometrial Stripe: 0.6 cm Right Ovary: 3.0x1.8x2.5 cm Left Ovary: 3.7x2.0x2.5 cm 1. Uterus: Anteverted wnl 2. Endometrium: wnl 3. Right Ovary: wnl 4. Left Ovary: wnl 5. Bilateral Adnexa: wnl 6. Posterior cul-de-sac: wnl Unremarkable anteverted uterus. Endometrium is within normal limits. Both ovaries appear unremarkable . No free fluid. IMPRESSION: Unremarkable pelvic ultrasound.
== END | disposition home or self-care (01) ==
LOC: RADUSWWP 08:54
PROVIDERS: ATTEND Obstetrics & Gynecology
DX: N93.8 Other specified abnormal uterine and vaginal bleeding (principal); N83.209 Unspecified ovarian cyst, unspecified side
CPT/HCPCS: 76856; 86304